=== PATIENT | male | born 1960 | race Caucasian/White ===

== ENCOUNTER 2016-06-21 03:43 | Emergency (ER) | payer MEDICARE, OTHER ==
[~2016-06-21] VITALS: Ht 177.8 cm; Wt 85.0 kg
[~2016-06-21 03:43] MED LIST: ABAC1TAB12 PO; ASPI-664 PO; CARV25TA79 PO; CRES10 PO; HYDR-3498 PO; HYDR-902 PO; LISI10TA2 PO; LORA1TAB PO; LORA2ORA2 PO; TAMS0.4C2 PO; ZOLP10TA PO; ZOLP10TA5 PO
[2016-06-21 03:46] VITALS: Ht 177.8 cm; Wt 85.0 kg
[2016-06-21] MEDS ORDERED: morphine 4 MG/ML VIAL IV STA (05:05)
[2016-06-21] MEDS ORDERED: SOD CHLORIDE 0.9% 1,000 ML IV STA (05:05)
[2016-06-21 06:14] LABS: ADD UMIC YES; URINE BILIRUBIN (Dip) NEGATIVE (NEGATIVE); URINE BLOOD (Dip) 2+ (NEGATIVE); URINE COLOR YELLOW (YELLOW); URINE GLUCOSE (Dip) NEGATIVE (NEGATIVE); URINE KETONES (Dip) 15 (NEGATIVE); URINE LEUKOCYTE ESTERASE (Dip) NEGATIVE (NEGATIVE); URINE NITRITE (Dip) NEGATIVE (NEGATIVE); URINE TOTAL PROTEIN (Dip) 2+ (NEGATIVE); URINE UROBILINOGEN (Dip) 0.2 E.U./dL (0.1-1.0)
[2016-06-21 06:28] LABS: BASOPHILS % 0.1 % (0.0-2.0); EOSINOPHILS % 0.1 % (0.0-7.0); HEMATOCRIT 43.5 % (42.0-52.0); HEMOGLOBIN 15.3 g/dl (14.0-18.0); LYMPHOCYTES % 13.7 % (15.0-51.0); MEAN CORPUSCULAR HGB CONC 35.1 g/dl (32.0-37.0); MEAN CORPUSCULAR VOLUME 94.1 fl (82.0-101.0); MEAN PLATELET VOLUME 7.9 fl (7.4-10.4); MONOCYTE # 1.7 10^3/ul (0.3-0.9); MONOCYTES % 11.3 % (0.0-11.0); NEUTROPHILS % 74.8 % (39.0-77.0); PLATELET COUNT 138 10^3/UL (140-440); RED BLOOD COUNT 4.62 10^6/ul (4.70-6.10); RED CELL DISTRIBUTION WIDTH 12.9 % (11.5-14.5); UNCORRECTED WBC 14.7 10^3/ul (4.8-10.8); WHITE BLOOD COUNT 14.7 10^3/ul (4.8-10.8)
--- NOTE | 2016-06-21 06:40 | RADRPT ---
PROCEDURE: CT Abdomen and pelvis without contrast. CLINICAL INDICATION: Abdominal pain. TECHNIQUE: CT scan of the abdomen and pelvis was performed on the [facility] [employer] 6 4 slice VCT scanner. Contiguous axial images using 2.5 mm slice thickness were obtained from the pascale ng bases to the ischial tuberosities without intravenous contrast. Coronal and sagittal reformatted images were also obtained. Images were reviewed on the PACS workstation. One or more of the following dose reduction techniques were used: - Automated exposure control. - Adjustment of the mA and/or kV according to patient size. - Use of iterative reconstruction technique. Exam CTD/vol = 18.98 mGy. Total exam DLP = 1219.14 mGy-cm. COMPARISON: 04/22/2013. FINDINGS: Evaluation of the lung bases demonstrates no pleural or parenchymal disease. Abdomen: The liver is normal in size and diffusely low in attenuation consistent with fatty infiltr ation. There is no focal mass or dilatation of the biliary tree. The patient is status post cholec ystectomy. The spleen, pancreas and bilateral adrenal glands are within normal limits. Bilateral k idneys are normal in size with a small cyst within the mid to upper pole of the left kidney. There is no radiopaque renal or ureteral calculus identified. There is no hydronephrosis or hydroureter. There is no retroperitoneal adenopathy. The abdominal aorta is of normal caliber with scattered at herosclerotic calcifications. There is a small periumbilical hernia containing fat. There is mild thickening of the colon with mi ld adjacent stranding. There is no bowel obstruction or free air. The appendix is not visualized. There is no diverticulosis or diverticulitis. There is no ascites. Pelvis: The bladder is unremarkable. The prostate and seminal vesicles are within normal limits. There is no significant pelvic adenopathy or free fluid. Evaluation of the osseous structures demonstrates no suspicious lytic or blastic lesion. IMPRESSION: Mild thickening of the colon represents nonspecific infectious/inflammatory colitis. Fatty infiltration of the liver. Status post cholecystectomy. Small periumbilical hernia containing fat. Vascular calcifications reflective of atherosclerosis. .Jagjit Guevara MD, Date Time Electronically viewed and signed by .Jagjit Guevara MD, on 06/21/2016 06:40 .T/
[2016-06-21 06:42] LABS: CONDITION 1
[2016-06-21 07:47] LABS: POTASSIUM 4.6 mmol/L (3.5-5.1)
[2016-06-21 07:49] LABS: ALBUMIN/GLOBULIN RATIO 1.17; BILIRUBIN,INDIRECT 0.2 mg/dl (0-1.1); BILIRUBIN,TOTAL 0.2 mg/dl (0.2-1.3); CREATININE 1.07 mg/dl (0.61-1.24); TOTAL PROTEIN 7.4 g/dl (6.1-8.1)
[2016-06-21 07:50] LABS: CALCIUM 9.2 mg/dl (8.4-10.2)
[2016-06-21] MEDS ORDERED: ACETAMINOPHEN 500 MG TAB PO STA (08:24)
[2016-06-21] MEDS ORDERED: ONDA4TAB14 PO (08:25)
[2016-06-21] MEDS ORDERED: DICY10CA60 PO (08:25)
[2016-06-21] MEDS ORDERED: CIPR500T4 PO (08:25)
[2016-06-21] MEDS ORDERED: HYDR-902 PO (08:25)
--- NOTE | 2016-06-21 08:32 | ERD ---
ER Documentation Chief Complaint Date/Time DATE: 06/21/16 TIME: 08:28 Chief Complaint bib ambulance, mid abd pain x 2 days, diarrhea, hx hiv+ HPI Pleasant 55-year-old male history of hypertension diabetes, blindness, HIV, CD4 of 800 who presents to the emergency room with 2 days of symptoms. Patient describes mild diffuse cramping abdominal discomfort with associated loose watery stools. He denies any fevers or chills, no nausea or vomiting. He denies chest pain or shortness of breath. No recent sick contacts or antibiotics. ROS All systems reviewed and are negative except as per history of present illness. Medications Home Meds Active Scripts Ondansetron (Ondansetron Odt) 4 Mg Tab.rapdis, 4 MG PO Q6H Y for NAUSEA AND/OR VOMITING, #10 TAB Prov:JOB ROJAS MD 06/21/16 Ciprofloxacin Hcl* (Ciprofloxacin Hcl*) 500 Mg Tablet, 500 MG PO BID for 7 Days , TAB Prov:JOB ROJAS MD 06/21/16 Hydrocodone/Acetaminophen ([place] 10-325 Tablet) 1 Each Tablet, 1 TAB PO Q6H Y for PAIN, #7 TAB Prov:JOB ROJAS MD 06/21/16 Dicyclomine Hcl* (Bentyl*) 10 Mg Capsule, 10 MG PO QID Y for abdominal cramping , #30 CAP Prov:JOB ROJAS MD 06/21/16 Hydrocodone/Acetaminophen ([place] 10-325 Tablet) 1 Each Tablet, 1 TAB PO Q6H Y for PAIN, #20 TAB Prov:GAMAILEL BAUM PA-C 04/12/16 Zolpidem Tartrate* (Ambien*) 10 Mg Tablet, 10 MG PO QHS Y for INSOMNIA, #3 TAB Prov:DANNI LOJA DO 01/23/16 Lorazepam* (Lorazepam*) 1 Mg Tablet, 1 MG PO Q8, #6 TAB Prov:DANNI LOJA DO 01/23/16 Reported Medications Abacavir/Dolutegravir/Lamivudi (Triumeq Tablet) 1 Each Tablet, 1 EACH PO DAILY, TAB 12/18/15 Zolpidem Tartrate* (Zolpidem Tartrate*) 10 Mg Tablet, 10 MG PO QHS Y for INSOMNIA, #30 TAB 12/15/15 Lorazepam* (Ativan* Intensol) 2 Mg/1 Ml Oral.conc, 1 MG PO TID, ML 12/15/15 Aspirin* (Aspirin* EC) 81 Mg Tablet.dr, 81 MG PO DAILY, TAB 12/15/15 Lisinopril* (Lisinopril*) 10 Mg Tablet, 10 MG PO DAILY, #30 TAB 12/15/15 Hydrocodone Bit-Acetaminophen* ([place]*) 5-325 Mg Tab, 1 TAB PO Q4H Y for PAIN, TAB 12/15/15 Carvedilol* (Carvedilol*) 25 Mg Tablet, 25 MG PO BID, TAB 06/15/14 Tamsulosin Hcl* (Tamsulosin Hcl*) 0.4 Mg Cap.er.24h, 0.4 MG PO DAILY 01/02/13 Rosuvastatin Calcium* (Crestor*) 10 Mg Tablet, 10 MG PO DAILY 11/08/12 Allergies Allergies: Coded Allergies: ketorolac (Verified Allergy, Unknown, 12/18/15) ketorolac tromethamine (Verified Allergy, Unknown, 12/18/15) PMhx/Soc History of Surgery: No Anesthesia Reaction: No Hx Neurological Disorder: Yes (BLIND) Hx Respiratory Disorders: No Hx Cardiac Disorders: Yes (NE X 3 WITH STENTS, HTN, HIGH CHOLESTEROL) Hx Psychiatric Problems: No Hx Miscellaneous Medical Probl: Yes (HIV) Hx Alcohol Use: No Hx Substance Use: No Hx Tobacco Use: No Smoking Status: Never smoker Physical Exam Vitals Vital Signs Date Time Temp Pulse Resp B/P Pulse Ox O2 Delivery O2 Flow Rate FiO2 06/21/16 07:00 100.2 98 18 139/99 95 Room Air 06/21/16 03:46 99.8 110 20 140/77 98 Physical Exam General: Well developed, well nourished, no acute distress Head: Normocephalic, atraumatic. Eyes: Pupils equally reactive, EOM intact ENT: Moist mucous membranes Neck: Supple, no lymphadenopathy Respiratory: Lungs clear bilaterally, no distress Cardiovascular: RRR, no murmurs, rubs, or gallops Abdominal: Soft, mild diffuse tenderness without rebound or guarding : Deferred MSK: No edema, no unilateral swelling, 5/5 strength Neurologic: Alert and oriented, moving all extremities, normal speech, no focal weakness, no cerebellar signs Skin: No rash Psych: Normal mood Result Diagram: 06/21/16 0614 06/21/16 0614 Results 24 hrs Laboratory Tests Test 06/21/16 05:50 06/21/16 06:14 Urine Bilirubin NEGATIVE Urine Clarity CLEAR Urine Color YELLOW Urine Glucose NEGATIVE% Urine Hemoglobin 2+ Urine Ketones 15 Urine Leukocyte Esterase NEGATIVE Urine Microscopic RBC 2-5/HPF Urine Microscopic WBC NONE SEEN/HPF Urine Nitrite NEGATIVE Urine Specific [place] 1.020 Urine Total Protein 2+ Urine Urobilinogen 0.2 E.U./dL Urine pH 6.5 Alanine Aminotransferase (ALT/SGPT) 42IU/L Albumin 4.0g/dl Albumin/Globulin Ratio 1.17 Alkaline Phosphatase 72IU/L Anion Gap 20 Aspartate Amino Transf (AST/SGOT) 35IU/L Basophils # 0.010^3/ul Basophils % 0.1% Blood Urea Nitrogen 10mg/dl Calcium Level 9.2mg/dl Carbon Dioxide Level 19mmol/L Chloride Level 97mmol/L Creatinine 1.07mg/dl Direct Bilirubin 0.00mg/dl Eosinophils # 0.010^3/ul Eosinophils % 0.1% Globulin 3.40g/dl Glucose Level 117mg/dl Hematocrit 43.5% Hemoglobin 15.3g/dl Indirect Bilirubin 0.2mg/dl Lactic Acid Level 1.1mmol/L Lipase 19U/L Lymphocytes # 2.010^3/ul Lymphocytes % 13.7% Mean Corpuscular Hemoglobin 33.0pg Mean Corpuscular Hemoglobin Concent 35.1g/dl Mean Corpuscular Volume 94.1fl Mean Platelet Volume 7.9fl Monocytes # 1.710^3/ul Monocytes % 11.3% Neutrophils # 11.010^3/ul Neutrophils % 74.8% Nucleated Red Blood Cells # 0.010^3/ul Nucleated Red Blood Cells % 0.0/100WBC Platelet Count 22473^3/UL Potassium Level 4.6mmol/L Red Blood Count 4.6210^6/ul Red Cell Distribution Width 12.9% Sodium Level 131mmol/L Total Bilirubin 0.2mg/dl Total Protein 7.4g/dl White Blood Count 14.710^3/ul Current Medications Medications (Trade) Dose Ordered Sig/Tiffanie Route PRN Reason Start Time Stop Time Status Last Admin Dose Admin Sodium Chloride (NS) 1,000 ml @ 1,000 mls/hr Q1H STAT IV 06/21/16 05:05 06/21/16 06:04 DC 06/21/16 06:24 Morphine Sulfate (morphine) 4 mg ONCE STAT IV 06/21/16 05:05 06/21/16 05:06 DC 06/21/16 06:24 Acetaminophen (Tylenol Tab) 1,000 mg ONCE STAT PO 06/21/16 08:24 06/21/16 08:25 DC 06/21/16 08:27 Procedures/MDM EKG, MONITORS, & DIAGNOSTIC IMAGING: CT abdomen and pelvis IMPRESSION: Mild thickening of the colon represents nonspecific infectious/inflammatory colitis. Fatty infiltration of the liver. Status post cholecystectomy. Small periumbilical hernia containing fat. Vascular calcifications reflective of atherosclerosis. LAB INTERPRETATION: Leukocytosis, slight hyponatremia MEDICAL DECISION MAKING: The patient's presentation is most consistent with viral process. The patient does have HIV but CD4 count is 800. This does not appear to be consistent with opportunistic diarrheal infection. Patient has good and appropriate follow-up. Given the patient's age comorbidities CT imaging of the abdomen and pelvis would be appropriate. ER COURSE: Laboratory testing shows slight leukocytosis. CT confirms possible colitis. While this is possibly related to viral process given the patient's past medical history and slight leukocytosis as well as low-grade fever a short course of ciprofloxacin seems reasonable. No signs or symptoms concerning for hemorrhagic E. coli. The patient has no evidence of renal failure. This is not consistent with HUS. Patient management would be reasonable as the patient is well-appearing and can tolerate oral intake. I advise close primary care follow-up and we discussed return precautions including fevers or worsening symptoms. I kept the patient and/or family informed of laboratory and diagnostic imaging results throughout the emergency room course. DISPOSITION PLAN: We discussed follow up with the patient's primary care doctor within 24 to 48 hours as needed. We also discussed return to the emergency room for worsening symptoms or worsening condition. Discharge Medications: [place], Zofran, Cipro, Bentyl We discussed the use of narcotics including avoidance of operating heavy machinery and driving as well as its addictive properties. Departure Diagnosis: Primary Impression: Abdominal pain Abdominal location: generalized Qualified Code: R10.84 - Generalized abdominal pain Additional Impressions: Diarrhea Diarrhea type: unspecified type Qualified Code: R19.7 - Diarrhea, unspecified type History of HIV infection Leukocytosis Leukocytosis type: unspecified Qualified Code: D72.829 - Leukocytosis, unspecified type Condition: Stable Patient Instructions: Abdominal Pain, Diarrhea, Viral (Child) (Adult) Referrals: [facility] YOU HAVE RECEIVED A MEDICAL SCREENING EXAM AND THE RESULTS INDICATE THAT YOU DO NOT HAVE A CONDITION THAT REQUIRES URGENT TREATMENT IN THE EMERGENCY DEPARTMENT. FURTHER EVALUATION AND TREATMENT OF YOUR CONDITION CAN WAIT UNTIL YOU ARE SEEN IN YOUR DOCTORS OFFICE WITHIN THE NEXT 1-2 DAYS. IT IS YOUR RESPONSIBILITY TO MAKE AN APPOINTMENT FOR FOLOW-UP CARE. IF YOU HAVE A PRIMARY DOCTOR --you should call your primary doctor and schedule an appointment IF YOU DO NOT HAVE A PRIMARY DOCTOR YOU CAN CALL OUR PHYSICIAN REFERRAL HOTLINE AT IF YOU CAN NOT AFFORD TO SEE A PHYSICIAN YOU CAN CHOSE FROM THE FOLLOWING [facility] [address] [facility]. [facility] [address] [facility]. [facility] [address] [facility] [facility] [address] [facility]. [facility] [address] [facility]. [facility]. [address] [facility]. [facility] YOU HAVE RECEIVED A MEDICAL SCREENING EXAM AND THE RESULTS INDICATE THAT YOU DO NOT HAVE A CONDITION THAT REQUIRES URGENT TREATMENT IN THE EMERGENCY DEPARTMENT. FURTHER EVALUATION AND TREATMENT OF YOUR CONDITION CAN WAIT UNTIL YOU ARE SEEN IN YOUR DOCTORS OFFICE WITHIN THE NEXT 1-2 DAYS. IT IS YOUR RESPONSIBILITY TO MAKE AN APPOINTMENT FOR FOLOW-UP CARE. IF YOU HAVE A PRIMARY DOCTOR --you should call your primary doctor and schedule and appointment IF YOU DO NOT HAVE A PRIMARY DOCTOR YOU CAN CALL OUR PHYSICIAN REFERRAL HOTLINE AT . IF YOU CAN NOT AFFORD TO SEE A PHYSICIAN YOU CAN CHOSE FROM THE FOLLOWING [facility] INSTITUTIONS: [facility] [address] [place] [address] [facility] [address] [place] [address] [facility] [address] [place] [address] [facility] () Usted se khan hecho un examen mdico de control que le indica que no est en jeff condicin que requiera tratamiento urgente en el Departamento de Emergencia. Un estudio ms profundo y el tratamiento de clark condicin pueden esperar sin ningn riesgo hasta que usted sea atendida/o en el consultorio de clark mdico o jeff cl alonzo. Es responsabilidad suya arreglar jeff francine para el seguimiento del samina. MANEJO DE CONDICIONES NO URGENTES EN EL FUTURO 1) Si usted tiene un mdico de atencin primaria: Usted debera llamar a clark mdico de atencin primaria antes de venir al departamento de emergencia. Despus de las horas de consultorio, clark doctor o clark asociado/a est disponible por telfono. El mdico o enfermero de michele en el servicio telefnico puede asesorarle por elina medio para atender el problema, o samina contrario se puede programar jeff francine. 2) Si usted no tiene un mdico de atencin primaria: Llame al mdico o clnica de referencia que aparece abajo emma las horas de consultorio para hacer jeff francine para que le vean. CLINICAS: [facility] [phone] [facility] [phone] [facility] [phone] [address] [facility] [phone] [address] [facility] [phone] [facility] [phone] [address] [facility]. [facility] () Anna se khan hecho un examen mdico de control que le indica que no est en jeff condicin que requiera tratamiento urgente en el Departamento de Emergencia. Un estudio ms profundo y el tratamiento de clark condicin pueden esperar sin ningn riesgo hasta que usted sea atendida/o en el consultorio de clark mdico o jeff cl alonzo. Es responsabilidad suya arreglar jeff francine para el seguimiento del samina. MANEJO DE CONDICIONES NO URGENTES EN EL FUTURO 1) Si usted tiene un mdico de atencin primaria: Usted debera llamar a clark mdico de atencin primaria antes de venir al departamento de emergencia. Despus de las horas de consultorio, clark doctor o clark asociado/a est disponible por telfono. El mdico o enfermero de michele en el servicio telefnico puede asesorarle por elina medio para atender el problema, o samina contrario se puede programar jeff francine. 2) Si usted no tiene un mdico de atencin primaria: Llame al mdico o condado institucions de referencia que aparece abajo emma las horas de consultorio para hacer jeff francine para que le vean. SI USTED NO PUEDE PAGAR PARA LANA UN MEDICO puede ir a: [facility] [address] [place] [address] [facility] [address] [place] [address] [facility] [address] [place] [address] [facility] [facility] [address] [place] [address] JOB ROJAS MD Jun 21, 2016 08:32
[2016-06-21] MEDS ORDERED: HYDROCODONE/APAP (10/325) TAB PO ONE (09:30)
[2016-06-21 09:40] VITALS: BP 145/89; PULSE 90; RESP 18; TEMP 99.8
== END 2016-06-21 09:40 | disposition home or self-care (01) ==
LOC: E/R 03:43
DX: R10.84 Generalized abdominal pain (principal); R19.7 Diarrhea, unspecified; D72.829 Elevated white blood cell count, unspecified; I10 Essential (primary) hypertension; E11.9 Type 2 diabetes mellitus without complications; Z21 Asymptomatic human immunodeficiency virus [HIV] infection status; Z95.5 Presence of coronary angioplasty implant and graft; Z79.82 Long term (current) use of aspirin
CPT/HCPCS: 74176; 80053; 81001; 83605; 83690; 85025; 96361; 96374; 99285; J2270; J7030; 81003

== ENCOUNTER 2017-03-02 16:33 | Inpatient (IN) | payer MEDICARE, OTHER ==
[~2017-03-02] VITALS: Ht 165.1 cm; Wt 94.0 kg
[~2017-03-02 16:33] MED LIST changes: +CIPR500T4 PO; +DICY10CA60 PO; +ONDA4TAB14 PO
[2017-03-02] MEDS ORDERED: morphine 4 MG/ML VIAL IV STA ×2 (17:40→22:59)
[2017-03-02] MEDS ORDERED: DICYCLOMINE 10 MG CAP PO ONE (18:00)
[2017-03-02] MEDS ORDERED: SOD CHLORIDE 0.9% 1,000 ML IV ONE (18:00)
--- NOTE | 2017-03-02 18:28 | RADRPT ---
PROCEDURE: Chest x-ray CLINICAL INDICATION: Shortness of breath TECHNIQUE: Chest single view COMPARISON: 04/12/2016 FINDINGS: The heart is normal in size. The pulmonary vessels are normal in caliber. There is minimal linear l eft base atelectasis/scarring. Lungs otherwise clear.. The costophrenic angles are sharp. The visu alized bony thorax is unremarkable. IMPRESSION: No acute cardiopulmonary disease. RPTAT: HH .Vasu Mcdonnell MD, Date Time Electronically viewed and signed by .Vasu Mcdonnell MD, on 03/02/2017 18:28 .W/
[2017-03-02 18:36] LABS: ADD UMIC YES; UR ASCORBIC ACID NEGATIVE (NEGATIVE); UR BACTERIA FEW /HPF (NONE SEEN); UR BILIRUBIN (Dip) NEGATIVE (NEGATIVE); UR BLOOD (Dip) 1+ mg/dL (NEGATIVE); UR CLARITY CLEAR (CLEAR); UR COLOR STRAW (YELLOW); UR GLUCOSE (Dip) 1+ mg/dL (NEGATIVE); UR KETONES (Dip) NEGATIVE (NEGATIVE); UR LEUKOCYTE ESTERASE (Dip) NEGATIVE Leu/ul (NEGATIVE); UR NITRITE (Dip) NEGATIVE (NEGATIVE); UR RBC 1 /HPF (0-5); UR SPECIFIC GRAVITY (Dip) 1.011 (1.003-1.030); UR TOTAL PROTEIN (Dip) 1+ mg/dl (NEGATIVE); UR UROBILINOGEN (Dip) NEGATIVE (NEGATIVE)
[2017-03-02] MEDS ORDERED: ONDANSETRON 4 MG INJ ONE (18:54)
[2017-03-02 19:21] LABS: ALBUMIN 4.1 g/dl (3.3-4.9); ALBUMIN/GLOBULIN RATIO 1.1; CALCIUM 9.4 mg/dl (8.4-10.2); CREATININE 1.2 mg/dl (0.61-1.24); POTASSIUM 4.5 mmol/L (3.5-5.1); TOTAL PROTEIN 7.8 g/dl (6.1-8.1)
[2017-03-02] MEDS ORDERED: ONDANSETRON 4 MG INJ IV STA (19:23)
[2017-03-02 19:39] LABS: BASOPHILS % 0.2 % (0.0-2.0); EOSINOPHILS % 0.4 % (0.0-7.0); HEMATOCRIT 41.2 % (42.0-52.0); HEMOGLOBIN 14.8 g/dl (14.0-18.0); LYMPHOCYTES # 2.5 10^3/ul (0.8-2.9); LYMPHOCYTES % 24.8 % (15.0-51.0); MEAN CORPUSCULAR HEMOGLOBIN 31.5 pg (29.0-33.0); MEAN CORPUSCULAR HGB CONC 35.9 g/dl (32.0-37.0); MEAN CORPUSCULAR VOLUME 87.7 fl (82.0-101.0); MEAN PLATELET VOLUME 9.7 fl (7.4-10.4); MONOCYTE # 0.8 10^3/ul (0.3-0.9); NEUTROPHIL # 6.7 10^3/ul (1.6-7.5); NEUTROPHILS % 66.2 % (39.0-77.0); PLATELET COUNT 196 10^3/UL (140-415); RED CELL DISTRIBUTION WIDTH 11.8 % (11.5-14.5); WHITE BLOOD COUNT 10.1 10^3/ul (4.8-10.8)
[2017-03-02] MEDS ORDERED: DEXTROSE 5%-0.9% NACL 1,000 ML IV SCH (21:30)
--- NOTE | 2017-03-02 22:10 | RADRPT ---
PROCEDURE: CT Brain without contrast. CLINICAL INDICATION: Headache TECHNIQUE: A multiplanar CT of the brain was performed on a CT scanner utilizing axial imaging fro m the skull base through the vertex without IV contrast. The CTDIvol is 43.38 mGy and the DLP is 72 0.23 mGycm. One or more of the following dose reduction techniques were utilized: Automated exposu re control, adjustment of the mA and/or kV according to patient size, use of iterative reconstructio n technique. COMPARISON: CT brain 04/12/2016 FINDINGS: No evidence of intracranial hemorrhage or abnormal extra-axial fluid collection. The brain parenchyma is normal attenuation morphology with preservation of keene white differentiatio n and age appropriate size of the ventricles and subarachnoid spaces. Bilateral ocular silicone/pros thesis The basal cisterns, posterior fossa contents, brainstem, craniocervical junction, orbits, pituitary axis, paranasal sinuses, mastoid air cells, and calvarium are unremarkable. IMPRESSION: 1. No intracranial hemorrhage or acute intracranial abnormality. No interval change. RPTAT:AAJJ Physician Kailyn Date Time Electronically viewed and signed by Physician Kailyn on 03/02/2017 22:10 DERRICK/
[2017-03-02] MEDS ORDERED: ROSU20TA PO (22:27)
[2017-03-02] MEDS ORDERED: LISI20TA11 PO (22:27)
[2017-03-02] MEDS ORDERED: BENZ200C43 PO (22:28)
[2017-03-02] MEDS ORDERED: PRD1OP5 BOTH EYES (22:29)
[2017-03-02] MEDS ORDERED: ATR1OO35 BOTH EYES (22:30)
[2017-03-02] MEDS ORDERED: ONDANSETRON 4 MG INJ IV PRN ×2 (22:30→23:30)
[2017-03-02] MEDS ORDERED: ACETAMINOPHEN 325 MG TAB PO PRN ×2 (22:30→23:30)
[2017-03-02 22:41] VITALS: TEMP 98.2
[2017-03-02] MEDS ORDERED: DOCUSATE SODIUM 100 MG CAP PO PRN (23:30)
[2017-03-02] MEDS ORDERED: NACL 0.9% 3 ML SYG IV SCH (23:30)
[2017-03-02] MEDS ORDERED: BISACODYL (EC) 5 MG TAB PO PRN (23:30)
[2017-03-02 23:56] VITALS: BP 118/77; RESP 19
[2017-03-03] VITALS (11 sets, daily range): BP systolic 84–136; BP diastolic 46–93; PULSE 64–76; RESP 17–20; Ht 165.1 cm; Wt 94.0 kg
[2017-03-03] MEDS ORDERED: CYCL-319 PO (00:53)
[2017-03-03] MEDS ORDERED: METO10TA96 PO (00:53)
--- NOTE | 2017-03-03 00:53 | ERA ---
ER Documentation Chief Complaint Date/Time DATE: 03/03/17 TIME: 00:46 Chief Complaint BODY ACHES, COUGH HPI This patient is a 56-year-old male with past medical history of HIV presenting to the emergency department with complaints of multiple episodes of diarrhea over the past 3 days. He states he had over 20 episodes of watery stool today. He also reports mild diffuse abdominal pain. Symptoms are constant. Symptoms are worsening. He took Tylenol at home with no relief of symptoms. He denies fevers, chills, nausea, vomiting, urinary symptoms, or other symptoms at this time other than headache. He is currently on antiretroviral therapy, however he does not recall his last viral load and does not recall exactly when he was last tested. ROS All systems reviewed and are negative except as per history of present illness. Medications Home Meds Active Scripts Lorazepam* (Lorazepam*) 1 Mg Tablet, 1 MG PO Q8, #6 TAB Prov:LINDSAYRYLAN OVIEDOCHETNA DO 01/23/16 Reported Medications Atropine Sulfate* (Atropine Sulfate*) 3.5 Gm Oint, 1 APPLIC BOTH EYES QID, #1 TUB 03/02/17 Prednisolone Acetate* (Pred Forte*) 5 Ml Susp, 1 DROP BOTH EYES QID, EA 03/02/17 Benzonatate* (Benzonatate*) 200 Mg Capsule, 200 MG PO TID Y for COUGH, CAP 03/02/17 Rosuvastatin Calcium* (Crestor*) 20 Mg Tablet, 20 MG PO QHS, #30 TAB 03/02/17 Lisinopril* (Lisinopril*) 20 Mg Tablet, 20 MG PO BID, #30 TAB 03/02/17 Abacavir/Dolutegravir/Lamivudi (Triumeq Tablet) 1 Each Tablet, 1 EACH PO DAILY, TAB 12/18/15 Zolpidem Tartrate* (Zolpidem Tartrate*) 10 Mg Tablet, 10 MG PO QHS Y for INSOMNIA, #30 TAB 12/15/15 Aspirin* (Aspirin* EC) 81 Mg Tablet.dr, 81 MG PO DAILY, TAB 12/15/15 Carvedilol* (Carvedilol*) 25 Mg Tablet, 25 MG PO BID, TAB 06/15/14 Discontinued Reported Medications Lorazepam* (Ativan* Intensol) 2 Mg/1 Ml Oral.conc, 1 MG PO TID, ML 12/15/15 Lisinopril* (Lisinopril*) 10 Mg Tablet, 10 MG PO DAILY, #30 TAB 12/15/15 Hydrocodone Bit-Acetaminophen* ([place]*) 5-325 Mg Tab, 1 TAB PO Q4H Y for PAIN, TAB 12/15/15 Tamsulosin Hcl* (Tamsulosin Hcl*) 0.4 Mg Cap.er.24h, 0.4 MG PO DAILY 01/02/13 Rosuvastatin Calcium* (Crestor*) 10 Mg Tablet, 10 MG PO DAILY 11/08/12 Discontinued Scripts Ondansetron (Ondansetron Odt) 4 Mg Tab.rapdis, 4 MG PO Q6H Y for NAUSEA AND/OR VOMITING, #10 TAB Prov:JOB ROJAS MD 06/21/16 Ciprofloxacin Hcl* (Ciprofloxacin Hcl*) 500 Mg Tablet, 500 MG PO BID for 7 Days , TAB Prov:JOB ROJAS MD 06/21/16 Hydrocodone/Acetaminophen ([place] 10-325 Tablet) 1 Each Tablet, 1 TAB PO Q6H Y for PAIN, #7 TAB Prov:JOB ROJAS MD 06/21/16 Dicyclomine Hcl* (Bentyl*) 10 Mg Capsule, 10 MG PO QID Y for abdominal cramping , #30 CAP Prov:JOB ROJAS MD 06/21/16 Hydrocodone/Acetaminophen ([place] 10-325 Tablet) 1 Each Tablet, 1 TAB PO Q6H Y for PAIN, #20 TAB Prov:GAMALIEL BAUM PA-C 04/12/16 Zolpidem Tartrate* (Ambien*) 10 Mg Tablet, 10 MG PO QHS Y for INSOMNIA, #3 TAB Prov:DANNI LOJA DO 01/23/16 Allergies Allergies: Coded Allergies: ketorolac (Verified Allergy, Unknown, 03/02/17) ketorolac tromethamine (Verified Allergy, Unknown, 03/02/17) PMhx/Soc Medical and Surgical Hx: pt denies Surgical Hx History of Surgery: Yes Anesthesia Reaction: No Hx Neurological Disorder: No Hx Respiratory Disorders: No Hx Cardiac Disorders: Yes (MIx3 w/ 2 stents) Hx Psychiatric Problems: No Hx Miscellaneous Medical Probl: Yes (HIV+) Hx Alcohol Use: No Hx Substance Use: No Hx Tobacco Use: No Smoking Status: Never smoker FmHx Family History: No diabetes Physical Exam Vitals Vital Signs Date Time Temp Pulse Resp B/P Pulse Ox O2 Delivery O2 Flow Rate FiO2 03/02/17 16:49 98.3 94 18 132/88 99 Physical Exam Const: Well-developed, well-nourished male but nontoxic appearing. Head: Atraumatic Eyes: no scleral icterus. hazy appearing corneas bilaterally, chronic ENT: Dry mucous membranes. Neck: Full range of motion..~ No meningismus. Resp: Clear to auscultation bilaterally Cardio: Regular rate and rhythm, no murmurs Abd: Soft, mild diffuse tenderness to palpation but no focal tenderness, no rebound tenderness or guarding noted, no McBurney's point tenderness. non distended. hyperactive bowel sounds Skin: No petechiae or rashes Back: No midline or flank tenderness Ext: No cyanosis, or edema Neur: Awake and alert and oriented 3, cranial nerves intact, motor grossly intact. wheelchair bound. Psych: Normal Mood and Affect Result Diagram: 03/02/17183703/02/171837 Results 24 hrs Laboratory Tests Test 03/02/17 18:00 03/02/17 18:38 Urine Color STRAW Urine Clarity CLEAR Urine pH 5.0 Urine Specific Roe 1.011 Urine Ketones NEGATIVEmg/dL Urine Nitrite NEGATIVEmg/dL Urine Bilirubin NEGATIVEmg/dL Urine Urobilinogen NEGATIVEmg/dL Urine Leukocyte Esterase NEGATIVELeu/ul Urine Microscopic RBC 1/HPF Urine Microscopic WBC 4/HPF Urine Bacteria FEW/HPF Urine Hemoglobin 1+mg/dL Urine Glucose 1+mg/dL Urine Total Protein 1+mg/dl White Blood Count 10.110^3/ul Red Blood Count 4.7010^6/ul Hemoglobin 14.8g/dl Hematocrit 41.2% Mean Corpuscular Volume 87.7fl Mean Corpuscular Hemoglobin 31.5pg Mean Corpuscular Hemoglobin Concent 35.9g/dl Red Cell Distribution Width 11.8% Platelet Count 05844^3/UL Mean Platelet Volume 9.7fl Neutrophils % 66.2% Lymphocytes % 24.8% Monocytes % 8.0% Eosinophils % 0.4% Basophils % 0.2% Nucleated Red Blood Cells % 0.0/100WBC Neutrophils # 6.710^3/ul Lymphocytes # 2.510^3/ul Monocytes # 0.810^3/ul Eosinophils # 0.010^3/ul Basophils # 0.010^3/ul Nucleated Red Blood Cells # 0.010^3/ul Sodium Level 123mmol/L Potassium Level 4.5mmol/L Chloride Level 95mmol/L Carbon Dioxide Level 16mmol/L Anion Gap 17 Blood Urea Nitrogen 8mg/dl Creatinine 1.20mg/dl Glucose Level 109mg/dl Calcium Level 9.4mg/dl Total Bilirubin 0.0mg/dl Direct Bilirubin 0.00mg/dl Indirect Bilirubin 0.0mg/dl Aspartate Amino Transf (AST/SGOT) 23IU/L Alanine Aminotransferase (ALT/SGPT) 25IU/L Alkaline Phosphatase 64IU/L Total Protein 7.8g/dl Albumin 4.1g/dl Globulin 3.70g/dl Albumin/Globulin Ratio 1.10 Lipase 124U/L Current Medications Medications (Trade) Dose Ordered Sig/Tiffanie Route PRN Reason Start Time Stop Time Status Last Admin Dose Admin Sodium Chloride (NS) 1,000 ml @ 1,000 mls/hr Q1H ONCE IV 03/02/17 18:00 03/02/17 18:59 DC 03/02/17 19:08 Morphine Sulfate (morphine) 4 mg ONCE STAT IV 03/02/17 17:40 03/02/17 17:45 DC 03/02/17 19:08 Dicyclomine HCl (Bentyl) 20 mg ONCE ONCE PO 03/02/17 18:00 03/02/17 18:01 DC 03/02/17 19:08 Ondansetron HCl (Zofran Inj) 4 mg STK-MED ONCE .ROUTE 03/02/17 18:54 03/02/17 18:55 DC Ondansetron HCl 4 mg 4 mg ONCE STAT IV 03/02/17 19:23 03/02/17 19:24 DC 03/02/17 19:26 Dextrose/Sodium Chloride (D5-NS) 1,000 ml @ 125 mls/hr Q8H IV 03/02/17 21:30 03/03/17 00:38 DC 03/02/17 23:24 Procedures/MDM Labs CBC: no anemia or evidence of infection CMP: Significant hyponatremia and hypochloremia, acidosis. No evidence of renal failure, hypoglycemia, liver failure, or biliary obstruction Lipase: no evidence of pancreatitis UA: no evidence of infection Chest x-ray: no Acute abnormalities CT head: no acute abnormalities MDM Patient is presenting with acute diarrhea without any evidence of sepsis on my exam. Patient's labs were notable for hyponatremia and exam was notable for dehydration. I do not think the patient is stable for discharge at this time and will require treatment for this. 1 L of IV fluids were given here and he was started on maintenance IV fluids. CT head was done to evaluate for any evidence of cerebral edema given his headache in the setting of hyponatremia. CT head was normal. I do not suspect surgical abdomen. I do not think he needs any abdominal imaging at this time. Stool studies were ordered and are pending. I will defer any further workup of his diarrhea to the inpatient team. Accepting Care Team: Current data and ongoing care discussed. Time: Time of admission Primary Provider: Alexandru Consulting: none Outstanding Data: Stool studies Departure Diagnosis: Primary Impression: Diarrhea Qualified Code: R19.7 - Diarrhea, unspecified type Additional Impression: Hyponatremia Condition: Serious NAVNEET SANTIAGO MD Mar 03, 2017 00:53
[2017-03-03 01:09] LABS: CALCIUM 9.3 mg/dl (8.4-10.2); CREATININE 1.03 mg/dl (0.61-1.24); POTASSIUM 4.6 mmol/L (3.5-5.1)
[2017-03-03] MEDS ORDERED: ZOLPIDEM 5 MG TAB PO PRN (01:30)
[2017-03-03] MEDS: morphine 4 MG/ML VIAL IV PRN ×5 (01:32→16:27)
[2017-03-03] MEDS: FAMOTIDINE 20 MG TAB PO SCH ×2 (01:39→08:14)
--- NOTE | 2017-03-03 01:59 | HP ---
Date/Time of Note Date/Time of Note DATE: 03/03/17 TIME: 01:45 Assessment/Plan VTE Prophylaxis VTE Prophylaxis Intervention: SCD's Lines/Catheters IV Catheter Type (from [facility], [place]): Saline Lock Assessment/Plan Chief Complaint/Hosp Course This is a 56-year-old male being admitted to the telemetry floor for: #1 hyponatremia: Patient's initial sodium was 123. Did receive normal saline bolus 1 L in the ED. Patient was started on D5 normal saline at 125 cc an hour by the ED, however I discontinued that would like to increase a sodium level slowly. Current time patient does appear stable and his mental status is intact so he does not require any hypertonic saline at this time. Will monitor BMP every 3 hours. Will provide fluid restriction 800 cc daily. Patient's urine does appear very dilute. Will check a urine osmolality and an osmolarity and fractional excretion of urine and microscopic urine to assess for etiology. This could possibly be SIADH secondary to his lisinopril however other causes of hyponatremia will also be worked up. Will obtain a nephrology consult. #2 diarrhea: Patient apparently has had diarrhea for 3 days with multiple bowel movements daily. He is afebrile at this time. With the patient having a history of HIV there is concern for possible opportunistic infections. Will check a CD4 count and HIV viral load. Will perform stool studies and check for opportunistic organisms as well. #3 HIV: We will check HIV viral load and CD4 count. Will resume patient's home HIV medications as indicated. Will consult ID if indicated. #4 History of CA: Patient has previous history of cardiac stents. Will resume patient's home home medications as indicated. #5 history of esophageal cancer: Stable at this time. #6 DVT and GI prophylaxis: SCDs, acid frederick Further treatment strategy will be implemented as per the clinical course Problems: HPI/ROS Admit Date/Time Admit Date/Time Mar 02, 2017 at 22:12 Hx of Present Illness Chief complaint: Diarrhea and headache This patient is a 56-year-old male with past medical history of HIV presenting to the emergency department with complaints of multiple episodes of diarrhea over the past 3 days. He states he had over 20 episodes of watery stool today. He also reports mild diffuse abdominal pain. Symptoms are constant. Symptoms are worsening. He took Tylenol at home with no relief of symptoms. He denies fevers, chills, nausea, vomiting, urinary symptoms, or other symptoms at this time other than headache. He is currently on antiretroviral therapy, however he does not recall his last viral load and does not recall exactly when he was last tested. Allergies: Ketorolac, tromethamine Occasions: See DEWEY GOYAL Const: Per HPI Eyes : No pain discharge or redness or change in visual acuity ENT: No pain, sore throat, congestion, congestion, dysphagia or discharge Respiratory: No shortness of breath, cough, sputum, wheezing, or pleuritic pain Cardiovascular: No chest pain, palpitation, PND, or edema GI : As per HPI Genitourinary: No dysuria, hematuria, flank pain , discharge or CVA tenderness Musculoskeletal: No joint pain, back pain, neck pain, restricted range of motion in neck or joints Skin: No rash, bruising or hives Neuro: As per HPI Endocrine: No polyuria, polydipsia, temperature intolerance Psych: No hallucination, depression, anxiety or suicidal ideation PMH/Family/Social Past Medical History History of hyponatremia, HIV positive, esophageal cancer, history of CA Past Surgical History Cardiac stent 2, cholecystectomy, appendectomy, hernia repair 3, Family History Significant Family History: no pertinent family hx Social History Alcohol Use: none Smoking Status: Never smoker Drug Use: none Exam/Review of Systems Vital Signs Vitals Vital Signs Date Time Temp Pulse Resp B/P Pulse Ox O2 Delivery O2 Flow Rate FiO2 03/03/17 00:05 65 03/02/17 23:56 97.7 19 118/77 96 03/02/17 22:41 Room Air Exam Exam General: Patient is a well-developed male sitting in bed in mild distress from his headache HEENT: Atraumatic, normocephalic. Patient is legally blind, Neck: Supple with full range of motion. No rigidity or meningismus Chest: Nontender Lungs: Clear to auscultation bilaterally no crackles rales or wheezing Heart: Normal S1-S2, Regular rhythm and rate. No murmurs appreciated Abdomen: Soft , nontender, nondistended , bowel sounds are present. No guarding no rebound tenderness , Extremities: Normal to inspection, no edema no cyanosis Neurologic: No mental status, speech is normal, alert and oriented 3. Cranial nerves II through XII intact. He walks around with a cane secondary to being legally blind. Additional Comments PROCEDURE: CT Brain without contrast. CLINICAL INDICATION: Headache TECHNIQUE: A multiplanar CT of the brain was performed on a CT scanner utilizing axial imaging from the skull base through the vertex without IV contrast. The CTDIvol is 43.38 mGy and the DLP is 720.23 mGycm. One or more of the following dose reduction techniques were utilized: Automated exposure control, adjustment of the mA and/or kV according to patient size, use of iterative reconstruction technique. COMPARISON: CT brain 04/12/2016 FINDINGS: No evidence of intracranial hemorrhage or abnormal extra-axial fluid collection. The brain parenchyma is normal attenuation morphology with preservation of keene white differentiation and age appropriate size of the ventricles and subarachnoid spaces. Bilateral ocular silicone/prosthesis The basal cisterns, posterior fossa contents, brainstem, craniocervical junction , orbits, pituitary axis, paranasal sinuses, mastoid air cells, and calvarium are unremarkable. IMPRESSION: 1. No intracranial hemorrhage or acute intracranial abnormality. No interval change. RPTAT:AAJJ Physician Kailyn Date Time Electronically viewed and signed by Physician Kailyn on 03/02/2017 22:10 DERRICK/ CC: JOCELIN BAILEY PA-C PROCEDURE: Chest x-ray CLINICAL INDICATION: Shortness of breath TECHNIQUE: Chest single view COMPARISON: 04/12/2016 FINDINGS: The heart is normal in size. The pulmonary vessels are normal in caliber. There is minimal linear left base atelectasis/scarring. Lungs otherwise clear.. The costophrenic angles are sharp. The visualized bony thorax is unremarkable. IMPRESSION: No acute cardiopulmonary disease. RPTAT: HH .Vasu Mcdonnell MD, MD Date Time Electronically viewed and signed by .Vasu Mcdonnell MD, on 03/02/2017 18:28 .W/ CC: JOCELIN BAILEY PA-C Labs Result Diagram: 03/02/17 1838 03/03/17 0037 Medications Medications Current Medications Ondansetron HCl (Zofran Inj) 4 mg Q6H PRN IV NAUSEA AND/OR VOMITING; Start at 23:30 Acetaminophen (Tylenol Tab) 650 mg Q6H PRN PO PAIN LEVEL 1-3 OR FEVER; Start at 23:30 Morphine Sulfate (morphine) 4 mg Q4H PRN IV PAIN LEVEL 7-10 Last administered on 03/03/17 01:32; Admin Dose 4 MG; Start 03/02/17 at 23:30 Docusate Sodium (Colace) 100 mg Q12H PRN PO CONSTIPATION; Start 03/02/17 at 23: 30 Bisacodyl (Dulcolax) 5 mg DAILY PRN PO CONSTIPATION; Start 03/02/17 at 23:30 Famotidine (Pepcid) 20 mg Q12 PO Last administered on 03/03/17 01:39; Admin Dose 20 MG; Start 03/02/17 at 23:30 Zolpidem Tartrate (Ambien) 10 mg QHS PRN PO INSOMNIA Last administered on 01:32; Admin Dose 10 MG; Start 03/03/17 at 01:30 FELY DOWNEY Mar 03, 2017 01:58
[2017-03-03 03:39] LABS: BASOPHILS % 0.2 % (0.0-2.0); EOSINOPHILS % 0.5 % (0.0-7.0); HEMOGLOBIN 16.3 g/dl (14.0-18.0); LYMPHOCYTES # 2.2 10^3/ul (0.8-2.9); LYMPHOCYTES % 26.3 % (15.0-51.0); MEAN CORPUSCULAR HEMOGLOBIN 31.4 pg (29.0-33.0); MEAN CORPUSCULAR HGB CONC 35.4 g/dl (32.0-37.0); MEAN CORPUSCULAR VOLUME 88.6 fl (82.0-101.0); MEAN PLATELET VOLUME 9.8 fl (7.4-10.4); MONOCYTE # 0.9 10^3/ul (0.3-0.9); NEUTROPHILS % 61.6 % (39.0-77.0); PLATELET COUNT 221 10^3/UL (140-415); RED BLOOD COUNT 5.19 10^6/ul (4.70-6.10); WHITE BLOOD COUNT 8.2 10^3/ul (4.8-10.8)
[2017-03-03 04:13] LABS: CALCIUM 9.3 mg/dl (8.4-10.2); CREATININE 1.06 mg/dl (0.61-1.24)
[2017-03-03] MEDS ORDERED: DEXTROSE 5% 1,000 ML IV ONE (08:30)
[2017-03-03 08:55] LABS: CALCIUM 9.3 mg/dl (8.4-10.2); CREATININE 1.1 mg/dl (0.61-1.24); POTASSIUM 4.7 mmol/L (3.5-5.1)
[2017-03-03 09:58] LABS: CHOL/HDL RATIO 4.8 RATIO; MAGNESIUM 2.3 mg/dl (1.7-2.5)
[2017-03-03 10:29] LABS: THYROID STIMULATING HORMONE 2.1 MIU/L (0.465-4.680)
[2017-03-03] MEDS ORDERED: DEXTROSE 5% 1,000 ML IV SCH (10:30)
[2017-03-03] MEDS ORDERED: LORAZEPAM 1 MG TAB PO ONE (11:30)
[2017-03-03 11:32] LABS: CALCIUM 9.5 mg/dl (8.4-10.2); POTASSIUM 4.4 mmol/L (3.5-5.1)
--- NOTE | 2017-03-03 13:08 | CONS ---
DATE OF ADMISSION: 03/02/2017 DATE OF CONSULTATION: 03/03/2017 REASON FOR CONSULTATION: Hyponatremia. REQUESTING PHYSICIAN: Dr. Nava. HISTORY OF PRESENT ILLNESS: This is a 56-year-old male with a past medical history of HIV, who presented to [facility] with complaints of diarrhea over the past 3 days, watery stools, and abdominal pain. The patient says his symptoms have been worsening despite taking home medications of Tylenol. The patient denied any episodes of hemoptysis, hematemesis, hematochezia. The patient came into the emergency room. Upon arrival, the patient was noted to be hyponatremic with a sodium level of 123 mEq/L. The patient was placed on IV fluids with improvement of the sodium level to 137 mEq. The patient states during this time, that he has been drinking copious amounts of IV fluids, Gatorade and . The patient states he has been eating limited amounts of oral intake. The patient otherwise denies any hemoptysis, hematemesis. PAST MEDICAL HISTORY: As stated above. History of HIV, history of esophageal cancer, previous history of hyponatremia. PAST SURGICAL HISTORY: Status post cardiac stent, cholecystectomy, appendectomy, hernia repair. FAMILY HISTORY: Noncontributory. SOCIAL HISTORY: Does not drink, smoke, or do drugs. MEDICATIONS: Reviewed. REVIEW OF SYSTEMS: Fourteen point review of systems conducted. Pertinent positives stated in HPI, otherwise negative. PHYSICAL EXAMINATION: VITAL SIGNS: Blood pressure is 98/61 respirations 19, pulse 62, temperature 97.2. HEENT: Head is normocephalic. NECK: Supple. HEART: Regular rate. LUNGS: Show diminished breath sounds at the base. ABDOMEN: Soft, nontender to palpation. No rebound or guarding. EXTREMITIES: Negative for clubbing, cyanosis. No edema. DERMATOLOGIC: Clean. No rashes. MUSCULOSKELETAL: No joint effusion. NEUROLOGIC: No focal deficits. LABORATORY: Currently shows sodium 137, potassium 4.7, chloride 108, BUN 9, creatinine 1.108. A.m. cortisol level of 1.8. TSH pending. Urine osmolality sodium levels are pending. Serum osmolality 275. IMPRESSION AND PLAN: This is a 56-year-old male, who presents with: 1. Hyponatremia. Etiology is likely acute secondary to volume depletion from gastrointestinal loss. The patient's sodium levels have corrected in approximately 12 hours after receiving intravenous fluids. Given the fact that the sodium levels have corrected greater than 12 mEq in a 24-hour period, we will start the patient on D5 water to try to decrease the sodium levels within a window of a correction of no more than 12 mEq. The patient likely had acute hyponatremia; however, as the baseline sodium was unknown. We will try to minimize over-correction. If sodium levels continue to rise despite aggressive D5 water, we will consider giving desmopressin. We will monitor serum sodium levels closely. Please note, that the patient has a noted cortisol deficiency on a random level. There may be a component of adrenal insufficiency contributing to the hyponatremia. Would consider an endocrine evaluation and/or cosyntropin stim test. 2. Diarrhea. Etiology is unclear. May be viral gastroenteritis. The patient is currently being evaluated by primary team. Stool studies have been sent. Consider GI evaluation. 3. Human immunodeficiency virus. Continue current human immunodeficiency virus medications. 4. Coronary artery disease. Continue medical management. 5. History of esophageal cancer. 6. Gastrointestinal and deep venous thrombosis prophylaxis. Thank you, Dr. Nava, for this interesting consult. It will be a pleasure to follow the patient throughout the hospital course. Dictated By: Fawad Bauer DO /gabe/tonia /Document#: [id number]
[2017-03-03 15:44] LABS: CALCIUM 9.8 mg/dl (8.4-10.2); CREATININE 1.02 mg/dl (0.61-1.24); POTASSIUM 4.4 mmol/L (3.5-5.1)
[2017-03-03] MEDS: ABACAVIR/LAMIVUDINE TAB PO SCH ×2 (16:30→16:36)
[2017-03-03] MEDS ORDERED: COSYNTROPIN 0.25 MG INJ IV ONE (16:30)
[2017-03-03] MEDS ORDERED: ATROPINE 1% 3.5 GM OPH OINT BOTH EYES SCH (17:00)
[2017-03-03] MEDS ORDERED: PREDNISOLONE ACET 1% 5 ML OPH BOTH EYES SCH (17:00)
[2017-03-03] MEDS ORDERED: TRIUMEQ TAB PO SCH (18:30)
[2017-03-03] MEDS ORDERED: ATORVASTATIN 80 MG TAB PO SCH (21:00)
[2017-03-03] MEDS ORDERED: LORAZEPAM 1 MG TAB PO SCH (22:00)
[2017-03-03 22:24] LABS: UR BACTERIA FEW /HPF (NONE SEEN); UR RBC 0 /HPF (0-5)
[2017-03-04] MEDS ORDERED: ATROPINE 1% 3.5 GM OPH OINT BOTH EYES SCH (09:00)
[2017-03-04] MEDS ORDERED: ASPIRIN (EC) 81 MG TAB PO SCH (09:00)
[2017-03-04 13:22] LABS: LYMPHOCYTE - % CD4 (HELPER) 33 % (30-61); LYMPHOCYTE - %CD8 (SUPPRESSOR) 42 % (12-42); LYMPHOCYTE - ABSOLUTE CD4 620 cells/uL (490-1740); LYMPHOCYTE - ABSOLUTE CD8 794 cells/uL (180-1170); LYMPHOCYTE - CD4/CD8 RATIO 0.78 (0.86-5.00)
== END 2017-03-03 21:00 | disposition left against medical advice (07) | DRG 977 ==
LOC: FTE 16:33 → TEL 22:12
PROVIDERS: ADMIT Family Medicine; ATTEND Family Medicine
DX: B20 Human immunodeficiency virus [HIV] disease (principal); E87.1 Hypo-osmolality and hyponatremia; R19.7 Diarrhea, unspecified; E86.0 Dehydration; R51 Headache; I25.2 Old myocardial infarction; H54.8 Legal blindness, as defined in USA
CPT/HCPCS: 36415; 70450; 71010; 80048; 80053; 80061; 81001; 82533; 83036; 83690; 83735; 83930; 83935; 84300; 84443; 85025; 86360; 87496; 87536; 96374; 96375; 96376; J2270; J2405; J7030; J7042; J7070

== ENCOUNTER 2017-03-24 07:16 | Inpatient (IN) | payer MEDICARE, OTHER ==
[~2017-03-24] VITALS: Ht 177.8 cm; Wt 94.4 kg
[~2017-03-24 07:16] MED LIST changes: +ATR1OO35 BOTH EYES; +BENZ200C43 PO; -CIPR500T4 PO; -CRES10 PO; +CYCL-319 PO; -DICY10CA60 PO; -HYDR-3498 PO; -HYDR-902 PO; -LISI10TA2 PO; +LISI20TA11 PO; -LORA2ORA2 PO; +METO10TA96 PO; -ONDA4TAB14 PO; +PRD1OP5 BOTH EYES; +ROSU20TA PO; -TAMS0.4C2 PO; -ZOLP10TA PO
[2017-03-24] MEDS ORDERED: SOD CHLORIDE 0.9% 1,000 ML IV STA (07:37)
[2017-03-24] MEDS ORDERED: ONDANSETRON 4 MG INJ IV STA ×2 (07:37→11:46)
[2017-03-24] MEDS ORDERED: HYDROmorphONE 1 MG/ML SYG IV STA ×3 (07:37→16:11)
[2017-03-24 08:42] LABS: BASOPHILS % 0.3 % (0.0-2.0); EOSINOPHILS # 0.1 10^3/ul (0.0-0.5); EOSINOPHILS % 1.1 % (0.0-7.0); HEMATOCRIT 42.6 % (42.0-52.0); HEMOGLOBIN 15.1 g/dl (14.0-18.0); LYMPHOCYTES # 2.4 10^3/ul (0.8-2.9); LYMPHOCYTES % 36.2 % (15.0-51.0); MEAN CORPUSCULAR HEMOGLOBIN 31.8 pg (29.0-33.0); MEAN CORPUSCULAR HGB CONC 35.4 g/dl (32.0-37.0); MEAN CORPUSCULAR VOLUME 89.7 fl (82.0-101.0); MEAN PLATELET VOLUME 9.2 fl (7.4-10.4); MONOCYTE # 0.6 10^3/ul (0.3-0.9); MONOCYTES % 8.5 % (0.0-11.0); NEUTROPHIL # 3.5 10^3/ul (1.6-7.5); NEUTROPHILS % 53.4 % (39.0-77.0); PLATELET COUNT 198 10^3/UL (140-415); RED BLOOD COUNT 4.75 10^6/ul (4.70-6.10); RED CELL DISTRIBUTION WIDTH 12.3 % (11.5-14.5); WHITE BLOOD COUNT 6.6 10^3/ul (4.8-10.8)
[2017-03-24 09:00] LABS: ALBUMIN/GLOBULIN RATIO 1.14; BILIRUBIN,INDIRECT 0.3 mg/dl (0-1.1); BILIRUBIN,TOTAL 0.3 mg/dl (0.2-1.3); CALCIUM 8.9 mg/dl (8.4-10.2); CREATININE 1.08 mg/dl (0.61-1.24); MAGNESIUM 1.7 mg/dl (1.7-2.5); POTASSIUM 4.4 mmol/L (3.5-5.1); TOTAL PROTEIN 7.5 g/dl (6.1-8.1)
[2017-03-24 10:22] LABS: ADD UMIC YES; UR ASCORBIC ACID NEGATIVE (NEGATIVE); UR BILIRUBIN (Dip) NEGATIVE (NEGATIVE); UR BLOOD (Dip) NEGATIVE (NEGATIVE); UR CLARITY CLEAR (CLEAR); UR COLOR YELLOW (YELLOW); UR GLUCOSE (Dip) 1+ mg/dL (NEGATIVE); UR KETONES (Dip) NEGATIVE (NEGATIVE); UR LEUKOCYTE ESTERASE (Dip) NEGATIVE Leu/ul (NEGATIVE); UR NITRITE (Dip) NEGATIVE (NEGATIVE); UR RBC 0 /HPF (0-5); UR SPECIFIC GRAVITY (Dip) 1.017 (1.003-1.030); UR TOTAL PROTEIN (Dip) 1+ mg/dl (NEGATIVE); UR UROBILINOGEN (Dip) NEGATIVE (NEGATIVE)
[2017-03-24] MEDS ORDERED: SOD CHLORIDE 0.9% 1,000 ML IV SCH (12:41)
--- NOTE | 2017-03-24 12:41 | ERA ---
ER Documentation Chief Complaint Date/Time DATE: 03/24/17 TIME: 12:39 Chief Complaint Pt BIB ra 881 for complaint of weakness, uncoordination and diarrhea X 2 da HPI This is a 56-year-old male who states that he has got generalized weakness for the past day and a half as well as having diarrhea that is watery off and on for the past 2 days nonbloody. He has no abdominal pain but says he feels generalized weakness and is having some carpal spasms that are consistent that he states when he has low sodium. The patient has been admitted to the hospital multiple times for hyponatremia. Denies any vomiting fever chest pain cough dysuria. The patient says his whole body hurts/body aches. ROS All systems reviewed and are negative except as per history of present illness. Medications Home Meds Active Scripts Lorazepam* (Lorazepam*) 1 Mg Tablet, 1 MG PO Q8, #6 TAB Prov:DANNI LOJA DO 01/23/16 Reported Medications Metoclopramide Hcl* (Metoclopramide Hcl*) 10 Mg Tablet, 10 MG PO TID Y for NAUSEA, TAB 03/03/17 Cyclobenzaprine Hcl* (Cyclobenzaprine Hcl*) 10 Mg Tablet, 10 MG PO QHS Y for MUSCLE SPASMS, #90 TAB 03/03/17 Atropine Sulfate* (Atropine Sulfate*) 3.5 Gm Oint, 1 APPLIC BOTH EYES QID, #1 TUB 03/02/17 Prednisolone Acetate* (Pred Forte*) 5 Ml Susp, 1 DROP BOTH EYES QID, EA 03/02/17 Benzonatate* (Benzonatate*) 200 Mg Capsule, 200 MG PO TID Y for COUGH, CAP 03/02/17 Rosuvastatin Calcium* (Crestor*) 20 Mg Tablet, 20 MG PO QHS, #30 TAB 03/02/17 Lisinopril* (Lisinopril*) 20 Mg Tablet, 20 MG PO BID, #30 TAB 03/02/17 Abacavir/Dolutegravir/Lamivudi (Triumeq Tablet) 1 Each Tablet, 1 EACH PO DAILY, TAB 12/18/15 Zolpidem Tartrate* (Zolpidem Tartrate*) 10 Mg Tablet, 10 MG PO QHS Y for INSOMNIA, #30 TAB 12/15/15 Aspirin* (Aspirin* EC) 81 Mg Tablet.dr, 81 MG PO DAILY, TAB 12/15/15 Carvedilol* (Carvedilol*) 25 Mg Tablet, 25 MG PO BID, TAB 06/15/14 Allergies Allergies: Coded Allergies: cortisone (Verified Allergy, Unknown, 03/03/17) pt states had reaction when knee injected ketorolac (Verified Allergy, Unknown, 03/02/17) ketorolac tromethamine (Verified Allergy, Unknown, 03/02/17) PMhx/Soc History of Surgery: Yes (Elissa/Appy, hernia repair X 2, B eye surgeries.) Anesthesia Reaction: No Hx Neurological Disorder: No Hx Respiratory Disorders: No Hx Cardiac Disorders: Yes (MIx3 w/ 2 stents) Hx Psychiatric Problems: No Hx Miscellaneous Medical Probl: Yes (HIV+, esophageal CA-chemo/rad, Blind) Hx Alcohol Use: No Hx Substance Use: No Hx Tobacco Use: No Smoking Status: Former smoker FmHx Family History: No coronary disease Physical Exam Vitals Vital Signs Date Time Temp Pulse Resp B/P Pulse Ox O2 Delivery O2 Flow Rate FiO2 03/24/17 10:00 98.1 75 16 130/96 100 Room Air 03/24/17 07:33 98.1 69 18 128/109 100 Physical Exam Const: Well-developed, well-nourished Head: Atraumatic, normocephalic Eyes: Normal Conjunctiva, PERRLA, EOMI, normal sclera, no nystagmus ENT: Normal External Ears, Nose and Mouth, moist mucus membranes. Neck: Full range of motion. No meningismus, no lymphadenopathy. Resp: Clear to auscultation bilaterally, no wheezing, rhonchi, rales Cardio: Regular rate and rhythm, no murmurs, S1 S2 present Abd: Soft, non tender x 4, non distended. Normal bowel sounds, no guarding or rebound, no pulsitile abdominal masses or bruits Skin: No petechiae or rashes, no ecchymosis , no maculopapular rash Back: No midline or flank tenderness Ext: No cyanosis, or edema, FROM x 4, normal inspection, neurovascularly intact x 4, bilateral carpal spasms Neur: Awake and alert, STR 5/5 x 4, sensation intact x 4, no focal findings, cerebellum intact Psych: Normal Mood and Affect, histrionic Result Diagram: 03/24/17 0815 03/24/17 0815 Results 24 hrs Laboratory Tests Test 03/24/17 08:15 03/24/17 09:40 White Blood Count 6.610^3/ul Red Blood Count 4.7510^6/ul Hemoglobin 15.1g/dl Hematocrit 42.6% Mean Corpuscular Volume 89.7fl Mean Corpuscular Hemoglobin 31.8pg Mean Corpuscular Hemoglobin Concent 35.4g/dl Red Cell Distribution Width 12.3% Platelet Count 35317^3/UL Mean Platelet Volume 9.2fl Neutrophils % 53.4% Lymphocytes % 36.2% Monocytes % 8.5% Eosinophils % 1.1% Basophils % 0.3% Nucleated Red Blood Cells % 0.0/100WBC Neutrophils # 3.510^3/ul Lymphocytes # 2.410^3/ul Monocytes # 0.610^3/ul Eosinophils # 0.110^3/ul Basophils # 0.010^3/ul Nucleated Red Blood Cells # 0.010^3/ul Sodium Level 124mmol/L Potassium Level 4.4mmol/L Chloride Level 92mmol/L Carbon Dioxide Level 25mmol/L Anion Gap 11 Blood Urea Nitrogen 9mg/dl Creatinine 1.08mg/dl Glucose Level 96mg/dl Calcium Level 8.9mg/dl Magnesium Level 1.7mg/dl Total Bilirubin 0.3mg/dl Direct Bilirubin 0.00mg/dl Indirect Bilirubin 0.3mg/dl Aspartate Amino Transf (AST/SGOT) 24IU/L Alanine Aminotransferase (ALT/SGPT) 37IU/L Alkaline Phosphatase 60IU/L Total Protein 7.5g/dl Albumin 4.0g/dl Globulin 3.50g/dl Albumin/Globulin Ratio 1.14 Urine Color YELLOW Urine Clarity CLEAR Urine pH 6.0 Urine Specific [place] 1.017 Urine Ketones NEGATIVEmg/dL Urine Nitrite NEGATIVEmg/dL Urine Bilirubin NEGATIVEmg/dL Urine Urobilinogen NEGATIVEmg/dL Urine Leukocyte Esterase NEGATIVELeu/ul Urine Microscopic RBC 0/HPF Urine Microscopic WBC 2/HPF Urine Hemoglobin NEGATIVEmg/dL Urine Glucose 1+mg/dL Urine Total Protein 1+mg/dl Current Medications Medications (Trade) Dose Ordered Sig/Tiffanie Route PRN Reason Start Time Stop Time Status Last Admin Dose Admin Sodium Chloride (NS) 1,000 ml @ 1,000 mls/hr Q1H STAT IV 03/24/17 07:37 03/24/17 08:36 DC 03/24/17 08:23 Hydromorphone HCl (Dilaudid) 1 mg ONCE STAT IV 03/24/17 07:37 03/24/17 07:39 DC 03/24/17 08:23 Ondansetron HCl (Zofran Inj) 4 mg ONCE STAT IV 03/24/17 07:37 03/24/17 07:39 DC 03/24/17 08:23 Hydromorphone HCl (Dilaudid) 1 mg ONCE STAT IV 03/24/17 11:46 03/24/17 11:47 DC 03/24/17 11:51 Ondansetron HCl (Zofran Inj) 4 mg ONCE STAT IV 03/24/17 11:46 03/24/17 11:47 DC 03/24/17 11:51 Procedures/MDM Patient once again has low sodium with a sodium of 124. The patient was given 1 L normal saline and some pain medication. The patient states that he is feeling better as far as pain control goes carpal spasms. We will admit again for low-sodium workup and will need careful correction Departure Diagnosis: Primary Impression: Acute hyponatremia Additional Impression: Generalized weakness Condition: Stable VERNON GUEVARA DO Mar 24, 2017 12:41
[2017-03-24] MEDS ORDERED: ONDANSETRON 4 MG INJ IV PRN ×2 (13:00→18:00)
[2017-03-24] MEDS ORDERED: ACETAMINOPHEN 325 MG TAB PO PRN ×2 (13:00→18:00)
[2017-03-24 14:12] VITALS: TEMP 98.3
[2017-03-24] MEDS ORDERED: CARI350T29 PO (16:58)
[2017-03-24 17:04] VITALS: Ht 177.8 cm; Wt 94.4 kg
[2017-03-24 17:14] VITALS: BP 125/72; PULSE 80; RESP 16
--- NOTE | 2017-03-24 17:31 | HP ---
Date/Time of Note Date/Time of Note DATE: 03/24/17 TIME: 17:23 Assessment/Plan VTE Prophylaxis VTE Prophylaxis Intervention: SCD's Assessment/Plan Chief Complaint/Hosp Course 1. Hyponatremia secondary to diarrhea-this is a chronic problem Treat with normal saline, the past hyponatremia resolved quite quickly with IV fluids Nephrology consultation 2. History of HIV Continue home medications 3. History of coronary disease status post PCI in the past Continue home medications 4. History of esophageal cancer status post chemoradiation in the past-no acute issues Prophylaxis: SCDs Problems: HPI/ROS Admit Date/Time Admit Date/Time Mar 24, 2017 at 12:42 Hx of Present Illness Patient is a 56-year-old male with history of persistent hyponatremia secondary to fluid loss from persistent diarrhea, HIV on HAART, coronary disease status post PCI in the past and history of esophageal cancer status post chemoradiation years ago now reportedly stable. Patient presents with weakness in his lower extremities, and ER patient was found once can be hyponatremic. Patient does report persistent diarrhea, patient has no other acute complaints this time ROS Constitutional: improved, no complaints Eyes: no complaints ENT: no complaints Respiratory: no complaints Cardiovascular: no complaints Gastrointestinal: diarrhea Genitourinary: no complaints Musculoskeletal: no complaints Skin: no complaints Neurologic: other (Weakness in the lower extremities) Endocrine: no complaints Lymphatic: no complaints Psychological: nl mood/affect, no complaints Immunologic: no complaints PMH/Family/Social Past Medical History History of hyponatremia from persistent diarrhea, HIV positive, esophageal cancer, history of [place] Past Surgical History Cardiac stent 2, cholecystectomy, appendectomy, hernia repair 3, Family History Significant Family History: no pertinent family hx Social History Alcohol Use: none Smoking Status: Never smoker Drug Use: none Exam/Review of Systems Vital Signs Vitals Vital Signs Date Time Temp Pulse Resp B/P Pulse Ox O2 Delivery O2 Flow Rate FiO2 03/24/17 17:14 97.3 80 16 125/72 95 Room Air Exam Constitutional: alert, oriented Respiratory: clear to auscultation Cardiovascular: regular rate and rhythm Gastrointestinal: soft, No distended Musculoskeletal: nl extremities to inspection Labs Result Diagram: 03/24/1715 03/24/1715 Medications Medications Current Medications Sodium Chloride (NS) 1,000 ml @ 80 mls/hr [id number] IV Last administered on t 12:41; Admin Dose 80 MLS/HR; Start 03/24/17 at 12:41; Stop 03/25/17 at 01:10 MEDHAT KILLIAN Mar 24, 2017 17:31
[2017-03-24] MEDS ORDERED: METOCLOPRAMIDE 10 MG TAB PO PRN (18:00)
[2017-03-24] MEDS ORDERED: CYCLOBENZAPRINE 10 MG TAB PO PRN (18:00)
[2017-03-24] MEDS ORDERED: BENZONATATE 100 MG CAP PO PRN (18:00)
[2017-03-24] MEDS ORDERED: HYDROCODONE/APAP (5/325) TAB PO PRN (18:00)
[2017-03-24] MEDS ORDERED: NACL 0.9% 3 ML SYG IV SCH (18:00)
[2017-03-24] MEDS ORDERED: DIPHENOXYLATE/ATROPINE TAB PO PRN (18:00)
[2017-03-24] MEDS ORDERED: INFLUENZA VIRUS VACCINE 0.5 ML (DISPENSING) IM* ONE (19:30)
[2017-03-24] MEDS ORDERED: hydrALAzine 20 MG INJ IV PRN (20:00)
[2017-03-24] MEDS ORDERED: LORAZEPAM 1 MG TAB PO ONE (20:00)
[2017-03-24] MEDS: CARISOPRODOL 350 MG TAB PO SCH (20:27)
[2017-03-24] MEDS: LISINOPRIL 20 MG TAB PO SCH (20:27)
[2017-03-24] MEDS: morphine 2 MG INJ IV PRN (20:27)
[2017-03-24] MEDS: SOD CHLORIDE 0.9% 1,000 ML IV SCH (20:28)
[2017-03-24 20:30] VITALS: BP 168/101; RESP 18
[2017-03-24] MEDS: ATORVASTATIN 80 MG TAB PO SCH (20:36)
[2017-03-24] MEDS: PREDNISOLONE ACET 1% 5 ML OPH BOTH EYES SCH (21:51)
[2017-03-24] MEDS: ATROPINE 1% 3.5 GM OPH OINT BOTH EYES SCH (21:51)
[2017-03-24] MEDS ORDERED: LORAZEPAM 1 MG TAB PO SCH (22:00)
[2017-03-24 22:26] VITALS: BP 144/78; PULSE 78
[2017-03-24] MEDS: ZOLPIDEM 5 MG TAB PO PRN (23:21)
[2017-03-25] MEDS: morphine 2 MG INJ IV PRN ×6 (00:47→21:59)
[2017-03-25] MEDS: HYDROCODONE/APAP (5/325) TAB PO PRN ×3 (02:34→18:31)
[2017-03-25 02:37] VITALS: BP 104/65; RESP 16
[2017-03-25] MEDS: SOD CHLORIDE 0.9% 1,000 ML IV SCH ×2 (03:58→14:09)
[2017-03-25 04:52] LABS: BASOPHIL # 0.1 10^3/ul (0.0-0.1); BASOPHILS % 0.6 % (0.0-2.0); EOSINOPHILS # 0.1 10^3/ul (0.0-0.5); EOSINOPHILS % 0.7 % (0.0-7.0); HEMATOCRIT 45.6 % (42.0-52.0); HEMOGLOBIN 15.9 g/dl (14.0-18.0); LYMPHOCYTES # 2.9 10^3/ul (0.8-2.9); MEAN CORPUSCULAR HEMOGLOBIN 31.4 pg (29.0-33.0); MEAN CORPUSCULAR HGB CONC 34.9 g/dl (32.0-37.0); MEAN CORPUSCULAR VOLUME 89.9 fl (82.0-101.0); MONOCYTES % 11.4 % (0.0-11.0); NEUTROPHIL # 4.7 10^3/ul (1.6-7.5); NEUTROPHILS % 54.1 % (39.0-77.0); PLATELET COUNT 216 10^3/UL (140-415); RED BLOOD COUNT 5.07 10^6/ul (4.70-6.10); RED CELL DISTRIBUTION WIDTH 12.9 % (11.5-14.5); WHITE BLOOD COUNT 8.7 10^3/ul (4.8-10.8)
[2017-03-25 05:19] LABS: CALCIUM 9.5 mg/dl (8.4-10.2); CREATININE 1.18 mg/dl (0.61-1.24); PHOSPHORUS 3.2 mg/dl (2.5-4.9); POTASSIUM 5.1 mmol/L (3.5-5.1)
[2017-03-25] MEDS: LORAZEPAM 1 MG TAB PO SCH ×3 (07:51→17:42)
[2017-03-25 08:07] VITALS: BP 130/77; RESP 18
[2017-03-25] MEDS: ABACAVIR/LAMIVUDINE TAB PO SCH (08:52)
[2017-03-25] MEDS: DOLUTEGRAVIR SODIUM 50 MG TABLET PO SCH (08:53)
[2017-03-25] MEDS: ASPIRIN (EC) 81 MG TAB PO SCH (08:55)
[2017-03-25] MEDS: ATROPINE 1% 3.5 GM OPH OINT BOTH EYES SCH ×4 (08:56→20:44)
[2017-03-25] MEDS: CARISOPRODOL 350 MG TAB PO SCH ×2 (08:56→20:45)
[2017-03-25] MEDS: LISINOPRIL 20 MG TAB PO SCH ×2 (08:56→20:46)
[2017-03-25] MEDS: PREDNISOLONE ACET 1% 5 ML OPH BOTH EYES SCH ×4 (08:56→20:44)
[2017-03-25] MEDS ORDERED: NON-FORMULARY/PATIENT OWN MED (Abacavir/Dolutegravir/Lamivudi (Triumeq Tablet) 1 EACH) PO SCH (09:00)
[2017-03-25 14:00] VITALS: BP 121/75; RESP 14
--- NOTE | 2017-03-25 19:09 | PN ---
Date/Time of Note Date/Time of Note DATE: 03/25/17 TIME: 19:07 Assessment/Plan VTE Prophylaxis VTE Prophylaxis Intervention: SCD's Lines/Catheters IV Catheter Type (from Nrs): Peripheral IV Urinary Cath still in place: No Assessment/Plan Chief Complaint/Hosp Course 1. Hyponatremia secondary to diarrhea-this is a chronic problem-improved Treat with normal saline, the past hyponatremia resolved quite quickly with IV fluids Nephrology consultation 2. History of HIV Continue home medications 3. History of coronary disease status post PCI in the past Continue home medications 4. History of esophageal cancer status post chemoradiation in the past-no acute issues 5. Lower extremity pain secondary to muscle spasms Continue Soma Prophylaxis: SCDs Problems: Subjective 24 Hr Interval Summary Musculoskeletal: other (Muscle pain) Exam/Review of Systems Vital Signs Vitals Vital Signs Date Time Temp Pulse Resp B/P Pulse Ox O2 Delivery O2 Flow Rate FiO2 03/25/17 14:00 98.0 73 14 121/75 97 03/24/17 17:14 Room Air Intake and Output 03/24/17 03/24/17 03/25/17 14:59 22:59 06:59 Intake Total 160 ml 1620 ml Output Total 1000 ml 900 ml Balance -840 ml 720 ml Exam Constitutional: alert, oriented Respiratory: clear to auscultation Cardiovascular: regular rate and rhythm Gastrointestinal: soft, No distended Musculoskeletal: nl extremities to inspection Results Result Diagram: 03/25/17 0430 03/25/17 0429 Results 24 hrs Laboratory Tests Test 03/25/17 04:29 03/25/17 04:30 03/25/17 06:40 Sodium Level 133 L Potassium Level 5.1 Chloride Level 103 # Carbon Dioxide Level 24 Anion Gap 11 Blood Urea Nitrogen 11 Creatinine 1.18 Glucose Level 106 Calcium Level 9.5 Phosphorus Level 3.2 Magnesium Level 2.0 White Blood Count 8.7 # Red Blood Count 5.07 Hemoglobin 15.9 Hematocrit 45.6 Mean Corpuscular Volume 89.9 Mean Corpuscular Hemoglobin 31.4 Mean Corpuscular Hemoglobin Concent 34.9 Red Cell Distribution Width 12.9 Platelet Count 216 Mean Platelet Volume 9.0 Neutrophils % 54.1 Lymphocytes % 33.0 Monocytes % 11.4 H Eosinophils % 0.7 Basophils % 0.6 Nucleated Red Blood Cells % 0.0 Neutrophils # 4.7 Lymphocytes # 2.9 Monocytes # 1.0 H Eosinophils # 0.1 Basophils # 0.1 Nucleated Red Blood Cells # 0.0 Troponin I < 0.012 Medications Medications Current Medications Sodium Chloride (NS) 1,000 ml @ 75 mls/hr [id number] IV Last administered on 14:09; Admin Dose 75 MLS/HR; Start 03/24/17 at 17:31 Ondansetron HCl (Zofran Inj) 4 mg Q6H PRN IV NAUSEA AND/OR VOMITING; Start 03/31 at 18:00 Acetaminophen (Tylenol Tab) 650 mg Q6H PRN PO PAIN LEVEL 1-3 OR FEVER; Start 03/24/17 at 18:00 Morphine Sulfate (morphine) 2 mg Q4H PRN IV SEVERE PAIN LEVEL 7-10 Last administered on 03/25/17 17:05; Admin Dose 2 MG; Start 03/24/17 at 18:00 Aspirin (Halfprin) 81 mg DAILY PO Last administered on 03/25/17 08:55; Admin Dose 81 MG; Start 03/25/17 at 09:00 Atropine Sulfate (Atropine 1% Oph Oint) 1 applic QID BOTH EYES Last administered on 03/25/17 17:42; Admin Dose 1 APPLIC; Start 03/24/17 at 21:00 Benzonatate (Tessalon) 200 mg TID PRN PO COUGH; Start 03/24/17 at 18:00 Carisoprodol (Soma) 350 mg BID PO Last administered on 03/25/17 08:56; Admin Dose 350 MG; Start 03/24/17 at 21:00 Carvedilol (Coreg) 25 mg BID PO Last administered on 03/25/17 08:55; Admin Dose 25 MG; Start 03/24/17 at 21:00 Cyclobenzaprine HCl (Flexeril) 10 mg QHS PRN PO MUSCLE SPASMS; Start 03/24/17 at 18:00 Lisinopril (Zestril) 20 mg BID PO Last administered on 03/25/17 08:56; Admin Dose 20 MG; Start 03/24/17 at 21:00 Metoclopramide HCl (Reglan) 10 mg TID PRN PO NAUSEA; Start 03/24/17 at 18:00 Prednisolone Acetate (Pred-Forte 1%) 1 drop QID BOTH EYES Last administered on 03/25/17 17:42; Admin Dose 1 DROP; Start 03/24/17 at 21:00 Zolpidem Tartrate (Ambien) 10 mg QHS PRN PO INSOMNIA Last administered on 03/24 23:21; Admin Dose 10 MG; Start 03/24/17 at 18:00 Atorvastatin Calcium (Lipitor) 80 mg DAILY@21 PO ; Start 03/24/17 at 21:00 Diphenoxylate HCl/ Atropine (Lomotil) 1 tab Q6H PRN PO DIARRHEA; Start at 18:00 Lorazepam (Ativan) 1 mg 08,12,16 PO Last administered on 03/25/17 17:42; Admin Dose 1 MG; Start 03/25/17 at 08:00 Hydralazine HCl (Apresoline) 10 mg Q4H PRN IV ELEVATED BLOOD PRESSURE; Start 03/24/17 at 20:00 Acetaminophen/ Hydrocodone Bitart ([place] (5/325)) 2 tab Q6H PRN PO PAIN Last administered on 03/25/17 18:31; Admin Dose 2 TAB; Start 03/24/17 at 20:00 Abacavir/ Lamivudine (Epzicom) 1 tab DAILY PO ; Start 03/25/17 at 09:00 Dolutegravir Sodium (Tivicay) 50 mg DAILY PO ; Start 03/25/17 at 09:00 MEDHAT KILLIAN Mar 25, 2017 19:09
[2017-03-25 20:06] VITALS: BP 137/94; RESP 18
[2017-03-25] MEDS: ATORVASTATIN 80 MG TAB PO SCH (20:45)
[2017-03-25] MEDS: ZOLPIDEM 5 MG TAB PO PRN (22:41)
[2017-03-26] MEDS: SOD CHLORIDE 0.9% 1,000 ML IV SCH ×3 (02:23→17:39)
[2017-03-26] MEDS: HYDROCODONE/APAP (5/325) TAB PO PRN ×4 (02:23→23:56)
[2017-03-26 02:38] VITALS: BP 92/58; RESP 18
[2017-03-26] MEDS: morphine 2 MG INJ IV PRN ×4 (05:20→20:15)
[2017-03-26 07:13] LABS: CALCIUM 9.5 mg/dl (8.4-10.2); CREATININE 1.45 mg/dl (0.61-1.24); POTASSIUM 4.3 mmol/L (3.5-5.1)
[2017-03-26] MEDS: LORAZEPAM 1 MG TAB PO SCH ×3 (08:00→17:38)
[2017-03-26] MEDS: CARISOPRODOL 350 MG TAB PO SCH ×2 (08:00→20:15)
[2017-03-26 08:13] VITALS: BP 117/76; RESP 20
[2017-03-26] MEDS: ABACAVIR/LAMIVUDINE TAB PO SCH (09:00)
[2017-03-26] MEDS: DOLUTEGRAVIR SODIUM 50 MG TABLET PO SCH (09:00)
[2017-03-26] MEDS: PREDNISOLONE ACET 1% 5 ML OPH BOTH EYES SCH ×4 (09:08→20:14)
[2017-03-26] MEDS: ASPIRIN (EC) 81 MG TAB PO SCH (09:08)
[2017-03-26] MEDS: ATROPINE 1% 3.5 GM OPH OINT BOTH EYES SCH ×4 (09:08→20:14)
[2017-03-26] MEDS: LISINOPRIL 20 MG TAB PO SCH ×2 (09:09→20:17)
--- NOTE | 2017-03-26 15:05 | PN ---
Date/Time of Note Date/Time of Note DATE: 03/26/17 TIME: 15:04 Assessment/Plan VTE Prophylaxis VTE Prophylaxis Intervention: SCD's Lines/Catheters IV Catheter Type (from Nrs): Peripheral IV Urinary Cath still in place: No Assessment/Plan Chief Complaint/Hosp Course 1. Hyponatremia secondary to diarrhea-this is a chronic problem-improved Treat with normal saline, the past hyponatremia resolved quite quickly with IV fluids Nephrology consultation 2. History of HIV Continue home medications 3. History of coronary disease status post PCI in the past Continue home medications 4. History of esophageal cancer status post chemoradiation in the past-no acute issues 5. Lower extremity pain secondary to muscle spasms Continue Soma 2. Acute on likely mild CKD Increase IV fluid rate Nephrology consultation Prophylaxis: SCDs Dispo: Plan is for likely DC in a.m. Problems: Subjective 24 Hr Interval Summary ENT: sore throat Exam/Review of Systems Vital Signs Vitals Vital Signs Date Time Temp Pulse Resp B/P Pulse Ox O2 Delivery O2 Flow Rate FiO2 03/26/17 08:13 98.6 79 20 117/76 93 03/24/17 17:14 Room Air Intake and Output 03/25/17 03/25/17 03/26/17 15:00 23:00 07:00 Intake Total 500 ml 1640 ml 1150 ml Output Total 1325 ml Balance 500 ml 1640 ml -175 ml Exam Constitutional: alert, oriented Respiratory: clear to auscultation Cardiovascular: regular rate and rhythm Gastrointestinal: soft, No distended Musculoskeletal: nl extremities to inspection Results Result Diagram: 03/25/17 0430 03/26/17 0557 Results 24 hrs Laboratory Tests Test 03/26/17 05:57 Sodium Level 135 Potassium Level 4.3 Chloride Level 103 Carbon Dioxide Level 24 Anion Gap 12 Blood Urea Nitrogen 17 Creatinine 1.45 H Glucose Level 112 Calcium Level 9.5 Medications Medications Current Medications Sodium Chloride (NS) 1,000 ml @ 75 mls/hr [id number] IV Last administered on t 02:23; Admin Dose 75 MLS/HR; Start 03/24/17 at 17:31 Ondansetron HCl (Zofran Inj) 4 mg Q6H PRN IV NAUSEA AND/OR VOMITING; Start 03/31 at 18:00 Acetaminophen (Tylenol Tab) 650 mg Q6H PRN PO PAIN LEVEL 1-3 OR FEVER; Start 03/24/17 at 18:00 Morphine Sulfate (morphine) 2 mg Q4H PRN IV SEVERE PAIN LEVEL 7-10 Last administered on 03/26/17 09:22; Admin Dose 2 MG; Start 03/24/17 at 18:00 Aspirin (Halfprin) 81 mg DAILY PO Last administered on 03/26/17 09:08; Admin Dose 81 MG; Start 03/25/17 at 09:00 Atropine Sulfate (Atropine 1% Oph Oint) 1 applic QID BOTH EYES Last administered on 03/26/17 12:48; Admin Dose 1 APPLIC; Start 03/24/17 at 21:00 Benzonatate (Tessalon) 200 mg TID PRN PO COUGH; Start 03/24/17 at 18:00 Carisoprodol (Soma) 350 mg BID PO Last administered on 03/26/17 08:00; Admin Dose 350 MG; Start 03/24/17 at 21:00 Carvedilol (Coreg) 25 mg BID PO Last administered on 03/26/17 09:08; Admin Dose 25 MG; Start 03/24/17 at 21:00 Cyclobenzaprine HCl (Flexeril) 10 mg QHS PRN PO MUSCLE SPASMS Last administered on 03/25/17 20:44; Admin Dose 10 MG; Start 03/24/17 at 18:00 Lisinopril (Zestril) 20 mg BID PO Last administered on 03/26/17 09:09; Admin Dose 20 MG; Start 03/24/17 at 21:00 Metoclopramide HCl (Reglan) 10 mg TID PRN PO NAUSEA; Start 03/24/17 at 18:00 Prednisolone Acetate (Pred-Forte 1%) 1 drop QID BOTH EYES Last administered on 03/26/17 12:48; Admin Dose 1 DROP; Start 03/24/17 at 21:00 Zolpidem Tartrate (Ambien) 10 mg QHS PRN PO INSOMNIA Last administered on 03/25 22:41; Admin Dose 10 MG; Start 03/24/17 at 18:00 Atorvastatin Calcium (Lipitor) 80 mg DAILY@21 PO Last administered on 20:45; Admin Dose 80 MG; Start 03/24/17 at 21:00 Diphenoxylate HCl/ Atropine (Lomotil) 1 tab Q6H PRN PO DIARRHEA; Start at 18:00 Lorazepam (Ativan) 1 mg 08,12,16 PO Last administered on 03/26/17 12:28; Admin Dose 1 MG; Start 03/25/17 at 08:00 Hydralazine HCl (Apresoline) 10 mg Q4H PRN IV ELEVATED BLOOD PRESSURE; Start 03/24/17 at 20:00 Acetaminophen/ Hydrocodone Bitart ([place] (5/325)) 2 tab Q6H PRN PO PAIN Last administered on 03/26/17 11:16; Admin Dose 2 TAB; Start 03/24/17 at 20:00 Abacavir/ Lamivudine (Epzicom) 1 tab DAILY PO ; Start 03/25/17 at 09:00 Dolutegravir Sodium (Tivicay) 50 mg DAILY PO ; Start 03/25/17 at 09:00 MEDHAT KILLIAN Mar 26, 2017 15:05
[2017-03-26 15:29] VITALS: BP 136/85; RESP 20
[2017-03-26] MEDS: ATORVASTATIN 80 MG TAB PO SCH (20:15)
[2017-03-26 21:04] VITALS: BP 124/77; RESP 18
[2017-03-26] MEDS: ZOLPIDEM 5 MG TAB PO PRN (22:48)
[2017-03-27] MEDS: morphine 2 MG INJ IV PRN ×3 (01:13→09:33)
[2017-03-27 02:59] VITALS: BP 99/58; RESP 18
[2017-03-27 05:41] LABS: CALCIUM 9.2 mg/dl (8.4-10.2); CREATININE 1.11 mg/dl (0.61-1.24)
[2017-03-27] MEDS: SOD CHLORIDE 0.9% 1,000 ML IV SCH (06:06)
[2017-03-27] MEDS: HYDROCODONE/APAP (5/325) TAB PO PRN ×2 (06:49→12:54)
[2017-03-27 07:36] VITALS: BP 121/82; RESP 18
[2017-03-27] MEDS: LISINOPRIL 20 MG TAB PO SCH (08:39)
[2017-03-27] MEDS: ASPIRIN (EC) 81 MG TAB PO SCH (08:39)
[2017-03-27] MEDS: CARISOPRODOL 350 MG TAB PO SCH (08:40)
[2017-03-27] MEDS: LORAZEPAM 1 MG TAB PO SCH ×2 (08:41→11:52)
[2017-03-27] MEDS: ATROPINE 1% 3.5 GM OPH OINT BOTH EYES SCH ×2 (08:41→12:23)
[2017-03-27] MEDS: PREDNISOLONE ACET 1% 5 ML OPH BOTH EYES SCH ×2 (08:42→12:23)
[2017-03-27] MEDS: DOLUTEGRAVIR SODIUM 50 MG TABLET PO SCH (09:00)
[2017-03-27] MEDS: ABACAVIR/LAMIVUDINE TAB PO SCH (09:00)
--- NOTE | 2017-03-27 11:04 | PDOCDIS ---
Discharge Instructions CONDITION Patient Condition: Good HOME CARE INSTRUCTIONS: Diet Instructions: Regular ACTIVITY: Activity Restrictions: No Restrictions FOLLOW UP/APPOINTMENTS Follow-up Plan F/U WITH YOUR PCP IN 1-2 WEEKS MEDHAT KILLIAN Mar 27, 2017 11:04
--- NOTE | 2017-03-27 14:00 | DS ---
Date/Time of Note Date/Time of Note DATE: 03/27/17 TIME: 13:57 Discharge Summary Admission/Discharge Info Admit Date/Time Mar 24, 2017 at 12:42 Discharge Date/Time March 27, 2017 Discharge Diagnosis 1. Hyponatremia secondary to diarrhea-this is a chronic problem-resolved 2. History of HIV Continue home medications 3. History of coronary disease status post PCI in the past Continue home medications 4. History of esophageal cancer status post chemoradiation in the past-no acute issues 5. Lower extremity pain secondary to muscle spasms Continue Soma 6. Acute on likely mild CKD-stable Patient Condition: Good Hospital Course Patient is a 56-year-old male with history of persistent hyponatremia secondary to fluid loss from persistent diarrhea, HIV on HAART, coronary disease status post PCI in the past and history of esophageal cancer status post chemoradiation years ago now reportedly stable. Patient presents with weakness in his lower extremities, pt was found to be hyponatremic, pt was started on normal saline and hyponatremia resolved. Patient's diarrhea did also resolved while in house, creatinine did rise one point but did stabilize with IV fluids. On the day of discharge patient's vitals, labs and physical exam stable and no further acute complaints questions are answered. Home Meds Active Scripts Lorazepam* (Lorazepam*) 1 Mg Tablet, 1 MG PO Q8, #6 TAB Prov:DANNI LOJA DO 01/23/16 Reported Medications Carisoprodol* (Carisoprodol*) 350 Mg Tablet, 350 MG PO BID, TAB 03/24/17 Metoclopramide Hcl* (Metoclopramide Hcl*) 10 Mg Tablet, 10 MG PO TID Y for NAUSEA, TAB 03/03/17 Cyclobenzaprine Hcl* (Cyclobenzaprine Hcl*) 10 Mg Tablet, 10 MG PO QHS Y for MUSCLE SPASMS, #90 TAB 03/03/17 Atropine Sulfate* (Atropine Sulfate*) 3.5 Gm Oint, 1 APPLIC BOTH EYES QID, #1 TUB 03/02/17 Prednisolone Acetate* (Pred Forte*) 5 Ml Susp, 1 DROP BOTH EYES QID, EA 03/02/17 Benzonatate* (Benzonatate*) 200 Mg Capsule, 200 MG PO TID Y for COUGH, CAP 03/02/17 Rosuvastatin Calcium* (Crestor*) 20 Mg Tablet, 20 MG PO QHS, #30 TAB 03/02/17 Lisinopril* (Lisinopril*) 20 Mg Tablet, 20 MG PO BID, #30 TAB 03/02/17 Abacavir/Dolutegravir/Lamivudi (Triumeq Tablet) 1 Each Tablet, 1 EACH PO DAILY, TAB 12/18/15 Zolpidem Tartrate* (Zolpidem Tartrate*) 10 Mg Tablet, 10 MG PO QHS Y for INSOMNIA, #30 TAB 12/15/15 Aspirin* (Aspirin* EC) 81 Mg Tablet.dr, 81 MG PO DAILY, TAB 12/15/15 Carvedilol* (Carvedilol*) 25 Mg Tablet, 25 MG PO BID, TAB 06/15/14 Follow-up Plan F/U WITH YOUR PCP IN 1-2 WEEKS Primary Care Provider Not On Staff Doctor Time spent on discharge: > 30 minutes MEDHAT KILLIAN Mar 27, 2017 14:00
--- NOTE | 2017-03-27 15:59 | RADRPT ---
Vent Rate: 69 bpm RR Interval: 0 msec IA Interval: 162 msec QRS Duration: 106 msec QT Interval: 408 msec QTC Interval: 437 msec P-R-T [place]: 50 - 58 - 69 degrees Normal sinus rhythm Incomplete right bundle branch block Borderline ECG Electronically Signed By: Gallo Marie [id number]
== END 2017-03-27 14:30 | disposition home or self-care (01) | DRG 641 ==
LOC: E/R 07:16 → PP2 12:42
PROVIDERS: ADMIT Internal Medicine; ATTEND Internal Medicine
DX: E87.1 Hypo-osmolality and hyponatremia (principal); I25.10 Atherosclerotic heart disease of native coronary artery without angina pectoris; M62.838 Other muscle spasm; M79.662 Pain in left lower leg; M79.661 Pain in right lower leg; R19.7 Diarrhea, unspecified; Z86.19 Personal history of other infectious and parasitic diseases; Z95.5 Presence of coronary angioplasty implant and graft; Z85.01 Personal history of malignant neoplasm of esophagus; Z92.21 Personal history of antineoplastic chemotherapy
CPT/HCPCS: 36415; 80048; 80053; 81001; 83735; 84100; 84484; 85025; 87081; 90686; 93005; 96374; 96375; 96376; 97161; J1170; J2270; J2405; J7030

== ENCOUNTER 2017-03-29 12:26 | Emergency (ER) | payer MEDICARE, OTHER ==
[~2017-03-29] VITALS: Ht 177.8 cm; Wt 118.0 kg
[~2017-03-29 12:26] MED LIST changes: +CARI350T29 PO
[2017-03-29 12:36] VITALS: Ht 177.8 cm; Wt 118.0 kg
[2017-03-29] MEDS ORDERED: SOD CHLORIDE 0.9% 1,000 ML IV STA ×2 (13:42→14:01)
[2017-03-29] MEDS ORDERED: METOCLOPRAMIDE 10 MG INJ IV STA (14:01)
[2017-03-29] MEDS ORDERED: DIPHENHYDRAMINE 50 MG INJ IV STA (14:01)
[2017-03-29 14:36] LABS: BASOPHILS % 0.5 % (0.0-2.0); EOSINOPHILS # 0.1 10^3/ul (0.0-0.5); EOSINOPHILS % 0.8 % (0.0-7.0); HEMATOCRIT 43.4 % (42.0-52.0); HEMOGLOBIN 15.3 g/dl (14.0-18.0); LYMPHOCYTES # 2.5 10^3/ul (0.8-2.9); LYMPHOCYTES % 40.2 % (15.0-51.0); MEAN CORPUSCULAR HGB CONC 35.3 g/dl (32.0-37.0); MEAN CORPUSCULAR VOLUME 90.8 fl (82.0-101.0); MEAN PLATELET VOLUME 8.9 fl (7.4-10.4); MONOCYTE # 0.6 10^3/ul (0.3-0.9); MONOCYTES % 9.9 % (0.0-11.0); NEUTROPHILS % 48.4 % (39.0-77.0); PLATELET COUNT 169 10^3/UL (140-415); RED BLOOD COUNT 4.78 10^6/ul (4.70-6.10); RED CELL DISTRIBUTION WIDTH 12.4 % (11.5-14.5); WHITE BLOOD COUNT 6.3 10^3/ul (4.8-10.8)
[2017-03-29 14:42] LABS: ADD UMIC YES; UR ASCORBIC ACID NEGATIVE (NEGATIVE); UR BILIRUBIN (Dip) NEGATIVE (NEGATIVE); UR BLOOD (Dip) NEGATIVE (NEGATIVE); UR CLARITY CLEAR (CLEAR); UR COLOR YELLOW (YELLOW); UR GLUCOSE (Dip) 1+ mg/dL (NEGATIVE); UR KETONES (Dip) NEGATIVE (NEGATIVE); UR LEUKOCYTE ESTERASE (Dip) NEGATIVE Leu/ul (NEGATIVE); UR NITRITE (Dip) NEGATIVE (NEGATIVE); UR RBC 0 /HPF (0-5); UR SPECIFIC GRAVITY (Dip) 1.026 (1.003-1.030); UR TOTAL PROTEIN (Dip) 2+ mg/dl (NEGATIVE); UR UROBILINOGEN (Dip) NEGATIVE (NEGATIVE)
--- NOTE | 2017-03-29 14:42 | RADRPT ---
PROCEDURE: CT Brain without contrast. CLINICAL INDICATION: Pain, headache TECHNIQUE: Routine CT scan of the brain was performed on a high resolution multi detector scanner without intravenous contrast. One or more of the following dose reduction techniques were used: Auto mated exposure control; Adjustment of the mA and/or kV according to patient size; Use of iterative r econstruction technique. CTDI = 44 mGy. DLP = 720 mGy-cm. COMPARISON: CT brain 03/02/2017 FINDINGS: Hemorrhage: No evidence of intracranial hemorrhage. Acute ischemic changes: No evidence of acute ischemic changes. Mass effect: None. Parenchymal volume: Within normal limits for age. Ventricular system: Concordant with parenchymal volume. Chronic changes: Parenchymal attenuation is within normal limits. Atherosclerotic calcifications of the cavernous portions of both internal carotid arteries are present. Extracranial soft tissues: Therapeutic injections within both globes again noted. Calvarium: No fractures. Paranasal sinuses: Visualized paranasal sinuses are clear. Mastoid air cells: Visualized mastoid air cells are clear. IMPRESSION: No acute intracranial abnormalities. Normal appearance of the brain parenchyma. Unchanged from the previous examination. RPTAT: AADD .Ming Max MD, Date Time Electronically viewed and signed by .Ming Max MD, on 03/29/2017 14:42 .B/
[2017-03-29 15:08] LABS: INR 0.91; PROTIME 12.2 Sec (12.2-14.2)
[2017-03-29 15:09] LABS: PARTIAL THROMBOPLASTIN TIME 35.4 Sec (25.0-35.0)
[2017-03-29 15:16] LABS: ALBUMIN/GLOBULIN RATIO 1.21; BILIRUBIN,INDIRECT 0.2 mg/dl (0-1.1); BILIRUBIN,TOTAL 0.2 mg/dl (0.2-1.3); CALCIUM 8.8 mg/dl (8.4-10.2); CREATININE 1.17 mg/dl (0.61-1.24); POTASSIUM 4.7 mmol/L (3.5-5.1); TOTAL PROTEIN 7.3 g/dl (6.1-8.1)
[2017-03-29] MEDS ORDERED: HYDROmorphONE 1 MG/ML SYG IV STA (16:00)
--- NOTE | 2017-03-29 18:09 | ERD ---
ER Documentation Chief Complaint Date/Time DATE: 03/29/17 TIME: 13:30 Chief Complaint BIB RA FOR HEADCAHE , DIZZINESS , B/L LEG CRAMPS HPI 56-year-old male, history of HIV on HAART with most recent CD4 count in February was 620, coronary artery disease status post PCI, esophageal cancer presents to the ED with multiple complaints, primarily leg cramps also headache , ongoing nonbloody, non mucoid diarrhea and generalized, gradual onset, moderate headache. No relieving or exacerbating factors. Denies neck pain, visual changes, focal weakness or numbness. No chest pain, palpitations or shortness of breath. Denies abdominal pain or back pain. No dysuria, polyuria or hematuria. No fevers or chills. Patient has had a long history of leg cramps and headaches with multiple ED visits dated back to 2012 and chronic diarrhea, intermittently since 2015. He was admitted for workup of these symptoms of hyponatremia February 21, 2017. Culture and workup for opportunistic organisms was negative. ROS All systems reviewed and are negative except as per history of present illness. Medications Home Meds Active Scripts Tramadol HCl (Tramadol HCl) 50 Mg Tablet, 50 MG PO Q6 Y for PAIN, #12 TAB Prov:AUBREY BLANCO MD 03/29/17 Lorazepam* (Lorazepam*) 1 Mg Tablet, 1 MG PO Q8, #6 TAB Prov:DANNI LOJA DO 01/23/16 Reported Medications Carisoprodol* (Carisoprodol*) 350 Mg Tablet, 350 MG PO BID, TAB 03/24/17 Metoclopramide Hcl* (Metoclopramide Hcl*) 10 Mg Tablet, 10 MG PO TID Y for NAUSEA, TAB 03/03/17 Cyclobenzaprine Hcl* (Cyclobenzaprine Hcl*) 10 Mg Tablet, 10 MG PO QHS Y for MUSCLE SPASMS, #90 TAB 03/03/17 Atropine Sulfate* (Atropine Sulfate*) 3.5 Gm Oint, 1 APPLIC BOTH EYES QID, #1 TUB 03/02/17 Prednisolone Acetate* (Pred Forte*) 5 Ml Susp, 1 DROP BOTH EYES QID, EA 03/02/17 Benzonatate* (Benzonatate*) 200 Mg Capsule, 200 MG PO TID Y for COUGH, CAP 03/02/17 Rosuvastatin Calcium* (Crestor*) 20 Mg Tablet, 20 MG PO QHS, #30 TAB 03/02/17 Lisinopril* (Lisinopril*) 20 Mg Tablet, 20 MG PO BID, #30 TAB 03/02/17 Abacavir/Dolutegravir/Lamivudi (Triumeq Tablet) 1 Each Tablet, 1 EACH PO DAILY, TAB 12/18/15 Zolpidem Tartrate* (Zolpidem Tartrate*) 10 Mg Tablet, 10 MG PO QHS Y for INSOMNIA, #30 TAB 12/15/15 Aspirin* (Aspirin* EC) 81 Mg Tablet.dr, 81 MG PO DAILY, TAB 12/15/15 Carvedilol* (Carvedilol*) 25 Mg Tablet, 25 MG PO BID, TAB 06/15/14 Allergies Allergies: Coded Allergies: cortisone (Verified Allergy, Unknown, 03/03/17) pt states had reaction when knee injected ketorolac (Verified Allergy, Unknown, 03/02/17) ketorolac tromethamine (Verified Allergy, Unknown, 03/02/17) PMhx/Soc Reviewed in chart. As per HPI. History of Surgery: Yes (gallbladder removed, appendix removed, hernia repairs , L foot fx, R foot fx) Anesthesia Reaction: No Hx Neurological Disorder: No Hx Respiratory Disorders: No Hx Cardiac Disorders: Yes (stents placed in heart, 3 heart attacks) Hx Psychiatric Problems: No Hx Miscellaneous Medical Probl: Yes (HIV on HAART,hyponatremia) Hx Alcohol Use: No Hx Substance Use: No Hx Tobacco Use: No Smoking Status: Never smoker FmHx No subarachnoid hemorrhage, stroke or cancer Physical Exam Vitals Vital Signs Date Time Temp Pulse Resp B/P Pulse Ox O2 Delivery O2 Flow Rate FiO2 03/29/17 20:07 97.5 78 18 130/63 99 Room Air 03/29/17 12:36 97.1 72 18 101/77 96 Physical Exam Const: [] Head: Atraumatic Eyes: Normal Conjunctiva ENT: Normal External Ears, Nose and Mouth. Neck: Full range of motion..~ No meningismus. Resp: Clear to auscultation bilaterally Cardio: Regular rate and rhythm, no murmurs Abd: Soft, non tender, non distended. Normal bowel sounds Skin: No petechiae or rashes Back: No midline or flank tenderness Ext: No cyanosis, or edema Neur: Awake and alert Psych: Normal Mood and Affect Result Diagram: 03/29/17 1349 03/29/17 1349 Results 24 hrs Laboratory Tests Test 03/29/17 13:49 03/29/17 14:00 White Blood Count 6.310^3/ul Red Blood Count 4.7810^6/ul Hemoglobin 15.3g/dl Hematocrit 43.4% Mean Corpuscular Volume 90.8fl Mean Corpuscular Hemoglobin 32.0pg Mean Corpuscular Hemoglobin Concent 35.3g/dl Red Cell Distribution Width 12.4% Platelet Count 87955^3/UL Mean Platelet Volume 8.9fl Neutrophils % 48.4% Lymphocytes % 40.2% Monocytes % 9.9% Eosinophils % 0.8% Basophils % 0.5% Nucleated Red Blood Cells % 0.0/100WBC Neutrophils # 3.010^3/ul Lymphocytes # 2.510^3/ul Monocytes # 0.610^3/ul Eosinophils # 0.110^3/ul Basophils # 0.010^3/ul Nucleated Red Blood Cells # 0.010^3/ul Prothrombin Time 12.2Sec Prothrombin Time Ratio 1.0 INR International Normalized Ratio 0.91 Activated Partial Thromboplast Time 35.4Sec Sodium Level 125mmol/L Potassium Level 4.7mmol/L Chloride Level 94mmol/L Carbon Dioxide Level 23mmol/L Anion Gap 13 Blood Urea Nitrogen 9mg/dl Creatinine 1.17mg/dl Glucose Level 99mg/dl Calcium Level 8.8mg/dl Total Bilirubin 0.2mg/dl Direct Bilirubin 0.00mg/dl Indirect Bilirubin 0.2mg/dl Aspartate Amino Transf (AST/SGOT) 28IU/L Alanine Aminotransferase (ALT/SGPT) 40IU/L Alkaline Phosphatase 55IU/L Total Protein 7.3g/dl Albumin 4.0g/dl Globulin 3.30g/dl Albumin/Globulin Ratio 1.21 Urine Color YELLOW Urine Clarity CLEAR Urine pH 5.0 Urine Specific [place] 1.026 Urine Ketones NEGATIVEmg/dL Urine Nitrite NEGATIVEmg/dL Urine Bilirubin NEGATIVEmg/dL Urine Urobilinogen NEGATIVEmg/dL Urine Leukocyte Esterase NEGATIVELeu/ul Urine Microscopic RBC 0/HPF Urine Microscopic WBC 2/HPF Urine Hemoglobin NEGATIVEmg/dL Urine Random Sodium 73mmol/L Urine Glucose 1+mg/dL Urine Total Protein 2+mg/dl Current Medications Medications (Trade) Dose Ordered Sig/Tiffanie Route PRN Reason Start Time Stop Time Status Last Admin Dose Admin Sodium Chloride 1,000 ml @ 1,000 mls/hr Q1H STAT IV 03/29/17 13:42 03/29/17 14:41 DC 03/29/17 14:56 Sodium Chloride (NS) 1,000 ml @ 1,000 mls/hr Q1H STAT IV 03/29/17 14:01 03/29/17 15:00 DC 03/29/17 14:59 Metoclopramide HCl (Reglan) 10 mg ONCE STAT IV 03/29/17 14:01 03/29/17 14:03 DC 03/29/17 14:57 Diphenhydramine HCl (Benadryl) 50 mg ONCE STAT IV 03/29/17 14:01 03/29/17 14:03 DC 03/29/17 14:57 Hydromorphone HCl (Dilaudid) 1 mg ONCE STAT IV 03/29/17 16:00 03/29/17 16:02 DC 03/29/17 16:14 Cyclobenzaprine HCl (Flexeril) 10 mg ONCE ONCE PO 03/29/17 19:00 03/29/17 19:01 DC 03/29/17 18:55 Procedures/MDM DOCUMENTS REVIEWED: ED nurse, prior ED, prior records including recent admission for hyponatremia [employer]-year-old male, history of HIV on HAART with most recent CD4 count symptoms 620 in February, coronary artery disease status post PCI, esophageal cancer presents to the ED with multiple complaints, primarily leg cramps also headache, ongoing nonbloody, non mucoid diarrhea and generalized , gradual onset, moderate headache. Mild hyponatremia treated with normal saline. Chronic diarrhea of uncertain etiology as he has had a recent extensive workup. Toxigenic C. difficile is pending. Abdominal exam is benign without rebound, guarding or signs of peritonitis. No urinary tract infection. With regards to his headache, patient presents with non-maximal, non-sudden, non-migrainous, non-intractable, non-aurus headache and neuro imaging/lumbar puncture is not indicated in this patient who presents with typical recurrence of baseline primary headache disorder. Symptoms improved with analgesics, hydration and muscle relaxants. Stable for discharge of precautionary instructions and urgent, outpatient follow-up within 48 hours as counseled. Counseled patient regarding diagnostic workup, diagnosis and need for followup. Understands to return to ED if symptoms recur, worsen or any other concerns. Observation Note: Time: 4 hours Family Hx: No Hypertension Evaluation: Multiple exams showed improving symptoms without evidence of an occult bacterial infection and he is stable for discharge Departure Diagnosis: Primary Impression: Leg cramps Additional Impressions: Cephalgia Headache type: unspecified Headache chronicity pattern: episodic headache Intractability: not intractable Qualified Code: R51 - Nonintractable episodic headache, unspecified headache type Diarrhea Diarrhea type: unspecified type Qualified Code: R19.7 - Diarrhea, unspecified type HIV (human immunodeficiency virus infection) On HAART (highly active antiretroviral) therapy Hyponatremia Condition: Stable (Improved) AUBREY BLANCO MD Mar 29, 2017 18:09
[2017-03-29] MEDS ORDERED: TRAM50TA2 PO (18:20)
[2017-03-29] MEDS ORDERED: CYCLOBENZAPRINE 10 MG TAB PO ONE (19:00)
[2017-03-29 20:07] VITALS: BP 130/63; PULSE 78; RESP 18; TEMP 97.5
== END 2017-03-29 20:05 | disposition home or self-care (01) ==
LOC: E/R 12:26
DX: B20 Human immunodeficiency virus [HIV] disease (principal); R25.2 Cramp and spasm; R19.7 Diarrhea, unspecified; E87.1 Hypo-osmolality and hyponatremia; Z79.82 Long term (current) use of aspirin; Z98.61 Coronary angioplasty status
CPT/HCPCS: 36415; 70450; 80053; 81001; 84300; 85025; 85610; 85730; 87045; 87075; 96374; 96375; 99285; J1170; J1200; J2765; J7030

== ENCOUNTER 2017-04-25 00:28 | Emergency (ER) | END 2017-04-25 04:31 | disposition home or self-care (01) | DX: R53.1 Weakness (principal); R19.7 Diarrhea, unspecified; R25.2 Cramp and spasm; R40.2142 Coma scale, eyes open, spontaneous, at arrival to emergency department; R40.2252 Coma scale, best verbal response, oriented, at arrival to emergency department; R40.2362 Coma scale, best motor response, obeys commands, at arrival to emergency department; Z98.61 Coronary angioplasty status; Z79.82 Long term (current) use of aspirin | CPT/HCPCS: 36415; 80053; 81001; 83605; 83690; 84484; 85025; 93005; 96374; 96375; 99284; J2270; J2405; J7030 ==

== ENCOUNTER 2017-09-10 14:25 | Emergency (ER) | END 2017-09-10 16:30 | disposition home or self-care (01) ==

== ENCOUNTER 2017-09-23 04:29 | Emergency (ER) | END 2017-09-23 12:38 | disposition home or self-care (01) ==

== ENCOUNTER → 2017-11-04 | Emergency (ER) | END | disposition home or self-care (01) ==

== ENCOUNTER → 2017-12-22 | Emergency (ER) | END | disposition left against medical advice (07) ==

== ENCOUNTER 2017-12-25 06:04 | Emergency (ER) | END 2017-12-25 08:00 | disposition home or self-care (01) ==

== ENCOUNTER 2017-12-30 09:53 | Emergency (ER) | END 2017-12-30 12:16 | disposition home or self-care (01) ==

== ENCOUNTER 2018-03-26 00:15 | Emergency (ER) | END 2018-03-26 03:35 | disposition home or self-care (01) ==

== ENCOUNTER 2018-04-29 23:10 | Emergency (ER) | END 2018-04-30 02:01 | disposition left against medical advice (07) ==

== ENCOUNTER 2018-12-13 05:52 | Emergency (ER) | payer MEDICARE, MEDICAID ==
[~2018-12-13] VITALS: Ht 177.8 cm; Wt 90.9 kg
[~2018-12-13 05:52] MED LIST changes: -ABAC1TAB12 PO; -ASPI-664 PO; +ASPI-817 PO; -BENZ200C43 PO; +CIPR500T4 PO; +CRES20 PO; -CYCL-319 PO; +CYCL10TA7 PO; +DICY10CA40 PO; +IBUP-1542 PO; +LISI-471 PO; -LISI20TA11 PO; +LOPE2CAP PO; -METO10TA96 PO; +METR500T PO; +OMEG1CAP2 PO; -PRD1OP5 BOTH EYES; -ROSU20TA PO
[2018-12-13 06:03] VITALS: Ht 177.8 cm; Wt 90.9 kg
[2018-12-13] MEDS ORDERED: ACETAMINOPHEN 500 MG TAB PO STA (06:40)
--- NOTE | 2018-12-13 07:05 | ERD ---
ER Documentation Chief Complaint Chief Complaint [id number],R hip pain,nonprovoked,nontraumatic,legally blind HPI Patient is a 58 years old legally blind male with PMHx of esophageal carcinoma (currently on remission), HIV with last CD4 count range in the 700's (admits to adherence to antivirals) presenting to the clinic for right lower extremity pin x 3 days. Patient reports pain initially started on right lower extremity that has now radiated to right hip. Patient rates his pain 10/10 and describes it as sharp. Patient admits to difficulty ambulating due to pain but denies pain, fever, chill, swelling, or rash. Patient denies taking any OTC medication and reports allergies to Toradol (rash); however, denies allergic reaction to Ibuprofen and Tylenol. ROS All systems reviewed and are negative except as per history of present illness. Medications Home Meds Active Scripts Acetaminophen* (Tylophen*) 500 Mg Capsule, 1 CAP PO Q6H PRN for PAIN AND OR ELEVATED TEMP, #20 CAP Prov:JODI CARO PA-C 12/13/18 Dicyclomine HCl (Dicyclomine HCl) 10 Mg Capsule, 10 MG PO TID PRN for ABDOMINAL CRAMPING, #20 CAP Prov:JOB ROJAS MD 07/15/18 Metronidazole* (Flagyl*) 500 Mg Tablet, 500 MG PO TID for 7 Days, TAB Prov:JOB ROJAS MD 07/15/18 Ciprofloxacin Hcl* (Ciprofloxacin Hcl*) 500 Mg Tablet, 500 MG PO BID for 7 Days, TAB Prov:JOB ROJAS MD 07/15/18 Loperamide Hcl* (Imodium*) 2 Mg Capsule, 2 MG PO .AFTER EA LOOSE BM PRN for DI ARRHEA, #10 TAB Prov:ISABELLA OTERO MD 03/26/18 Ibuprofen* (Motrin*) 600 Mg Tab, 600 MG PO Q6H PRN for PAIN AND OR ELEVATED TEMP, #20 TAB Prov:ISABELLA OTERO MD 03/26/18 Cyclobenzaprine Hcl* (Cyclobenzaprine Hcl*) 10 Mg Tablet, 10 MG PO Q8 PRN for PAIN, #30 TAB Prov:OZIEL EPSTEIN PA-C 09/23/17 Reported Medications Carvedilol* (Carvedilol*) 25 Mg Tablet, 25 MG PO BID, #60 TAB 09/10/17 [place]-3 Acid Ethyl Esters (Lovaza) 1 Gm Capsule, 2 GM PO BID, CAP 09/10/17 Zolpidem Tartrate* (Zolpidem Tartrate*) 10 Mg Tablet, 10 MG PO QHS PRN for INSOMNIA, #30 TAB 09/10/17 Rosuvastatin Calcium* (Crestor*) 20 Mg Tablet, 20 MG PO QHS, #30 TAB 09/10/17 Lisinopril* (Lisinopril*) 20 Mg Tablet, 20 MG PO BID, #30 TAB 09/10/17 Carisoprodol* (Carisoprodol*) 350 Mg Tablet, 350 MG PO Q8 PRN for MUSCLE SPASMS, TAB 09/10/17 Atropine Sulfate* (Atropine Sulfate*) 3.5 Gm Oint, 1 APPLIC BOTH EYES QID, #1 TUB 09/10/17 Aspirin* (Aspirin* EC) 81 Mg Tablet.dr, 81 MG PO DAILY, TAB 09/10/17 Lorazepam* (Lorazepam*) 1 Mg Tablet, 1 MG PO Q8 PRN for ANXIETY, #60 TAB 09/10/17 Allergies Allergies: Coded Allergies: ketorolac (Verified Allergy, Unknown, 07/15/18) cortisone (Verified Adverse Reaction, Unknown, 07/15/18) pt states had reaction when knee injected PMhx/Soc History of Surgery: Yes (Api, 2X cardiac stents) Anesthesia Reaction: No Hx Neurological Disorder: No Hx Respiratory Disorders: No Hx Cardiac Disorders: Yes (Hypertension, 3X [place]) Hx Psychiatric Problems: No Hx Miscellaneous Medical Probl: Yes (hiv) Hx Alcohol Use: No Hx Substance Use: No Hx Tobacco Use: No Physical Exam Vitals Vital Signs Date Temp Pulse Resp B/P (MAP) Pulse Ox O2 O2 Flow FiO2 Time Delivery Rate 12/13/18 89 17 149/74 99 Room Air 08:48 (99) 12/13/18 97.8 73 19 105/79 96 06:03 (88) Physical Exam Const: No acute distress. Patient lying on exam bed. Head: Atraumatic Eyes: Normal Conjunctiva Resp: Clear to auscultation bilaterally Cardio: Regular rate and rhythm, no murmurs Skin: No petechiae or rashes Back: No midline or flank tenderness Ext: No cyanosis, or edema. Neur: Awake and alert Psych: Normal Mood and Affect Right lower extremity exam: Subjective tenderness to palpation without objective finding from right lower extremity to right hip. No swelling, no rash noted. Negative Mackay sign. Neurovascular exam intact (2+ pelvic and pedal pulse), skin intact, Compartment soft. Results 24 hrs Current Medications Medications Dose Sig/Tiffanie Start Time Status Last (Trade) Ordered Route PRN Stop Time Admin Dose Reason Admin 1,000 mg ONCE STAT 12/13/18 DC 12/13/18 Acetaminophen PO 06:40 12/13/18 06:47 (Tylenol 06:41 Tab) Magnesium 50 ml @ 25 ONCE STAT 12/13/18 DC Sulfate mls/hr IVPB 07:27 12/13/18 08:49 Procedures/MDM Patient was seen and evaluated for right lower extremity pain. Right lower extremity venous ultrasound revealed No sonographic evidence for deep venous thrombosis. Low suspicion for sepsis, fracture, compartment syndrome. Patient was given Tylenol for pain. Patient is stable and ready for discharge. F/U with PCP. Patient will be discharged with Tylenol. Chris.I saw and evaluated patient, and performed physical exam, with mid-level provider, and agree with plan of care Departure Diagnosis: Primary Impression: Hip pain Laterality: right Qualified Codes: M25.551 - Pain in right hip Condition: Stable Patient Instructions: Hip Strain Referrals: [facility] Additional Instructions: Patient advised to return to the ED immediately for new or worsening symptoms. Patient advised to follow up with primary care provider in the next 24-48 hours. Patient verbalized understanding and agrees with treatment plan and course of action. If patient has no primary care they may follow up with [facility] [place] [address] [place] [id number] or [facility] [address] [place] [address] or [facility] [address] [place] [address] JODI CARO PA-C Dec 13, 2018 06:52 MARIETTA TALAVERA MD Dec 14, 2018 19:32
[2018-12-13] MEDS ORDERED: MAGNESIUM SULFATE 2 GM/50 ML 50 ML IVPB STA (07:27)
[2018-12-13] MEDS ORDERED: ACET500C5 PO (08:28)
[2018-12-13 08:48] VITALS: BP 149/74; PULSE 89; RESP 17
== END 2018-12-13 08:48 | disposition home or self-care (01) ==
LOC: E/R 05:52
DX: M25.551 Pain in right hip (principal); I12.9 Hypertensive chronic kidney disease with stage 1 through stage 4 chronic kidney disease, or unspecified chronic kidney disease; N18.4 Chronic kidney disease, stage 4 (severe); I25.2 Old myocardial infarction; Z21 Asymptomatic human immunodeficiency virus [HIV] infection status; Z79.82 Long term (current) use of aspirin; Z98.61 Coronary angioplasty status
CPT/HCPCS: 93971

== ENCOUNTER 2018-12-17 18:25 | Inpatient (IN) | payer MEDICARE, MEDICAID ==
[~2018-12-17] VITALS: Ht 177.8 cm; Wt 94.2 kg
[~2018-12-17 18:25] MED LIST changes: +ACET500C5 PO
--- NOTE | 2018-12-17 18:40 | ERD ---
ER Documentation Chief Complaint Chief Complaint DIZZINESS, WEAKNESS, HEADACHE X1 WEEK HPI This is a 58-year-old man complaining of continued dizziness and generalized weakness x2 to 3 days. States he was at [facility] yesterday and he was diagnosed with hyponatremia, but discharged from there and told his levels were improved with hydration. He states he has continued symptoms and suspects he still hyponatremic. Denies chest pain or shortness of breath, no fevers or chills but he has had a constant daily headache. Patient has had similar headaches in the past and denies that this is the worst headache of his life. ROS All systems reviewed and are negative except as per history of present illness. Medications Home Meds Active Scripts Acetaminophen* (Tylophen*) 500 Mg Capsule, 1 CAP PO Q6H PRN for PAIN AND OR ELEVATED TEMP, #20 CAP Prov:JODI CARO PA-C 12/13/18 Dicyclomine HCl (Dicyclomine HCl) 10 Mg Capsule, 10 MG PO TID PRN for ABDOMINAL CRAMPING, #20 CAP Prov:JOB ROJAS MD 07/15/18 Metronidazole* (Flagyl*) 500 Mg Tablet, 500 MG PO TID for 7 Days, TAB Prov:JOB ROJAS MD 07/15/18 Ciprofloxacin Hcl* (Ciprofloxacin Hcl*) 500 Mg Tablet, 500 MG PO BID for 7 Days, TAB Prov:JOB ROJAS MD 07/15/18 Loperamide Hcl* (Imodium*) 2 Mg Capsule, 2 MG PO .AFTER EA LOOSE BM PRN for DIARRHEA, #10 TAB Prov:ISABELLA OTERO MD 03/26/18 Ibuprofen* (Motrin*) 600 Mg Tab, 600 MG PO Q6H PRN for PAIN AND OR ELEVATED TEMP, #20 TAB Prov:ISABELLA OTERO MD 03/26/18 Cyclobenzaprine Hcl* (Cyclobenzaprine Hcl*) 10 Mg Tablet, 10 MG PO Q8 PRN for PAIN, #30 TAB Prov:OZIEL EPSTEIN PA-C 09/23/17 Reported Medications Carvedilol* (Carvedilol*) 25 Mg Tablet, 25 MG PO BID, #60 TAB 09/10/17 [place]-3 Acid Ethyl Esters (Lovaza) 1 Gm Capsule, 2 GM PO BID, CAP 09/10/17 Zolpidem Tartrate* (Zolpidem Tartrate*) 10 Mg Tablet, 10 MG PO QHS PRN for IN SOMNIA, #30 TAB 09/10/17 Rosuvastatin Calcium* (Crestor*) 20 Mg Tablet, 20 MG PO QHS, #30 TAB 09/10/17 Lisinopril* (Lisinopril*) 20 Mg Tablet, 20 MG PO BID, #30 TAB 09/10/17 Carisoprodol* (Carisoprodol*) 350 Mg Tablet, 350 MG PO Q8 PRN for MUSCLE SPASMS, TAB 09/10/17 Atropine Sulfate* (Atropine Sulfate*) 3.5 Gm Oint, 1 APPLIC BOTH EYES QID, #1 TUB 09/10/17 Aspirin* (Aspirin* EC) 81 Mg Tablet.dr, 81 MG PO DAILY, TAB 09/10/17 Lorazepam* (Lorazepam*) 1 Mg Tablet, 1 MG PO Q8 PRN for ANXIETY, #60 TAB 09/10/17 Allergies Allergies: Coded Allergies: ketorolac (Verified Allergy, Unknown, 07/15/18) cortisone (Verified Adverse Reaction, Unknown, 07/15/18) pt states had reaction when knee injected PMhx/Soc esophageal carcinoma, HIV, hypertension, possible SIADH History of Surgery: Yes (Api, 2X cardiac stents) Anesthesia Reaction: No Hx Neurological Disorder: Yes (cva) Hx Respiratory Disorders: No Hx Cardiac Disorders: Yes (Hypertension, 3X [place]) Hx Psychiatric Problems: No Hx Miscellaneous Medical Probl: Yes (hiv, blindness) Hx Alcohol Use: No Hx Substance Use: No Hx Tobacco Use: No Smoking Status: Never smoker Physical Exam Vitals Vital Signs Date Temp Pulse Resp B/P (MAP) Pulse Ox O2 O2 Flow FiO2 Time Delivery Rate 12/17/18 71 16 123/80 98 Room Air 23:04 (94) 12/17/18 68 15 118/75 100 Room Air 20:56 (89) 12/17/18 60 13 116/76 97 Room Air 19:48 (89) 12/17/18 97.5 67 16 114/78 99 18:33 (90) Physical Exam Const: Well-developed will nourished man, appears nauseous and dizzy, afebrile HEENT: Dry mucous membranes, pink conjunctive a, no cervical spine deformity, no goiter Resp: Clear to auscultation bilaterally Cardio: Regular rate and rhythm, no murmurs Abd: Soft, non tender, non distended. No masses, no guarding Skin: No petechiae or rashes, no lacerations or hematomas Ext: No cyanosis, or edema, distal pulses equal bilateral Neur: Awake and alert x3, no focal deficits or facial asymmetry Psych: Normal Mood and Affect Result Diagram: 12/17/18190312/17/181903 Results 24 hrs Laboratory Tests Test 12/17/18 19:04 White Blood Count 5.3 10^3/ul Red Blood Count 4.85 10^6/ul Hemoglobin 15.0 g/dl Hematocrit 41.5 % Mean Corpuscular Volume 85.6 fl Mean Corpuscular Hemoglobin 30.9 pg Mean Corpuscular Hemoglobin Concent 36.1 g/dl Red Cell Distribution Width 11.4 % Platelet Count 171 10^3/UL Mean Platelet Volume 9.7 fl Immature Granulocytes % 0.200 % Neutrophils % 44.4 % Lymphocytes % 40.8 % Monocytes % 13.1 % Eosinophils % 0.9 % Basophils % 0.6 % Nucleated Red Blood Cells % 0.0 /100WBC Immature Granulocytes # 0.010 10^3/ul Neutrophils # 2.4 10^3/ul Lymphocytes # 2.2 10^3/ul Monocytes # 0.7 10^3/ul Eosinophils # 0.1 10^3/ul Basophils # 0.0 10^3/ul Nucleated Red Blood Cells # 0.0 10^3/ul Sodium Level 123 mmol/L Potassium Level 4.5 mmol/L Chloride Level 90 mmol/L Carbon Dioxide Level 21 mmol/L Anion Gap 12 Blood Urea Nitrogen 9 mg/dl Creatinine 0.90 mg/dl Est Glomerular Filtrat Rate mL/min > 60 mL/min Glucose Level 114 mg/dl Calcium Level 9.0 mg/dl Total Bilirubin 0.5 mg/dl Direct Bilirubin 0.00 mg/dl Indirect Bilirubin 0.5 mg/dl Aspartate Amino Transf (AST/SGOT) 28 IU/L Alanine Aminotransferase (ALT/SGPT) 21 IU/L Alkaline Phosphatase 62 IU/L Total Protein 7.8 g/dl Albumin 4.4 g/dl Globulin 3.40 g/dl Albumin/Globulin Ratio 1.29 Lipase 43 U/L Current Medications Medications Dose Sig/Tiffanie Start Time Status Last (Trade) Ordered Route PRN Stop Time Admin Dose Reason Admin Sodium 500 ml @ Q1H STAT 12/17/18 DC 12/17/18 Chloride 500 mls/hr IV 18:46 12/17/18 18:59 19:45 Ondansetron 4 mg ONCE STAT 12/17/18 DC 12/17/18 HCl (Zofran IV 18:46 12/17/18 18:58 Inj) 18:47 Oxycodone/ 1 tab ONCE ONCE 12/17/18 DC 12/17/18 Acetaminophen PO 19:00 12/17/18 18:58 (Percocet 19:01 (5/ 325)) Sodium 1,000 ml @ Q10H IV 12/17/18 12/17/18 Chloride 100 mls/hr 21:37 21:47 IV Flush 3 ml PER 12/17/18 (NS 3 ml) PROTOCOL IV 22:00 Ondansetron 4 mg Q6H PRN 12/17/18 HCl (Zofran IV 22:00 Inj) NAUSEA/VOMITI NG 650 mg Q6H PRN 12/17/18 12/17/18 Acetaminophen PO .PAIN 1-3 22:00 21:47 (Tylenol OR TEMP Tab) Heparin 5,000 unit Q12 SC 12/18/18 Sodium 09:00 (Porcine) (Heparin (5000 Units/1ml)) Albuterol/ 3 ml Q2H RESP 12/17/18 Ipratropium THERAPY PRN 22:00 (Duoneb) HHN SHORTNESS OF BREATH Aspirin 81 mg DAILY PO 12/18/18 (Halfprin) 09:00 350 mg Q8 PRN PO 12/17/18 Carisoprodol MUSCLE SPASMS 22:00 (Soma) Carvedilol 25 mg BID PO 12/18/18 (Coreg) 09:00 Lisinopril 20 mg BID PO 12/18/18 (Zestril) 09:00 20 mg QHS PO 12/18/18 UNV Miscellaneous 21:00 Information Procedures/MDM IV line was established patient was placed on cardiac exercise specialist rhythm strip revealed a sinus rhythm at about 80 bpm with upright P and T waves. Patient was afebrile I administered 500 cc normal saline IV, Zofran 4 mg IV for dizziness and Percocet 1 tablet p.o. for headache EKG performed, read by me: Sinus bradycardia 51 bpm, left axis deviation, right ventricular conduction delay QRS duration 118 ms, no concerning ST elevations or depressions noted CBC was unremarkable, electrolytes revealed hyponatremia 123, liver function test normal. Given the patient's continued dizziness, headache, and hyponatremia he will be admitted to telemetry setting Departure Diagnosis: Primary Impression: Dizziness Additional Impressions: Acute hyponatremia Headache Headache type: tension-type Headache chronicity pattern: acute headache Intractability: intractable Qualified Codes: G44.201 - Tension-type headache, unspecified, intractable Condition: MARIETTA Arana MD Dec 17, 2018 18:40
[2018-12-17] MEDS ORDERED: SOD CHLORIDE 0.9% 500 ML IV STA (18:46)
[2018-12-17] MEDS ORDERED: ONDANSETRON 4 MG INJ IV STA (18:46)
[2018-12-17] MEDS ORDERED: OXYCODONE/ACETAMINOPHEN (5/325) TAB PO ONE (19:00)
[2018-12-17] MEDS: SOD CHLORIDE 0.9% 1,000 ML IV SCH (21:47)
[2018-12-17] MEDS ORDERED: ACETAMINOPHEN 325 MG TAB PO PRN (22:00)
[2018-12-17] MEDS ORDERED: ALBUTEROL/IPRATROPIUM (NEB) 3 ML AMP HHN PRN (22:00)
[2018-12-17] MEDS ORDERED: ONDANSETRON 4 MG INJ IV PRN (22:00)
[2018-12-17] MEDS ORDERED: NACL 0.9% 3 ML SYG IV SCH (22:00)
[2018-12-17] MEDS ORDERED: CARISOPRODOL 350 MG TAB PO PRN (22:00)
[2018-12-18 00:15] VITALS: BP 132/81; PULSE 60; RESP 18
[2018-12-18 00:17] VITALS: Ht 177.8 cm; Wt 94.2 kg
[2018-12-18] MEDS: OXYCODONE/ACETAMINOPHEN (5/325) TAB PO PRN ×6 (01:28→22:13)
[2018-12-18] MEDS: ZOLPIDEM 5 MG TAB PO PRN ×2 (02:44→23:11)
--- NOTE | 2018-12-18 05:54 | HP ---
Date/Time of Note Date/Time of Note DATE: 12/18/18 TIME: 05:50 Assessment/Plan VTE Prophylaxis Pharmacological prophylaxis: heparin Lines/Catheters IV Catheter Type (from Nrsg): Peripheral IV Assessment/Plan Assessment/Plan 1. Hyponatremia: Likely from diarrhea -Check urine electrolytes and osmolality -NS IVF -Nephrology consult as needed 2. Bilateral leg cramping: Secondary to above 3. Diarrhea: Patient had watery diarrhea a week ago for 3 days -Resolved 4. HIV -Per patient, last CD4 count was 700 three months ago -Continue meds 5. CAD s/p PCI with stents x2 -Continue home meds 6. History of esophageal cancer status post chemo and radiation 20 years ago: -No acute issue 7. Blindness: Supportive care Result Diagram: 12/18/18 0444 12/17/18 1904 Results 24hrs Laboratory Tests Test 12/17/18 19:04 12/18/18 04:44 White Blood Count 5.3 4.1 #L Red Blood Count 4.85 5.18 Hemoglobin 15.0 15.8 Hematocrit 41.5 L 43.9 Mean Corpuscular Volume 85.6 84.7 Mean Corpuscular Hemoglobin 30.9 30.5 Mean Corpuscular Hemoglobin Concent 36.1 36.0 Red Cell Distribution Width 11.4 L 11.5 Platelet Count 171 # 143 Mean Platelet Volume 9.7 10.4 Immature Granulocytes % 0.200 0.200 Neutrophils % 44.4 35.8 L Lymphocytes % 40.8 46.1 Monocytes % 13.1 H 16.4 H Eosinophils % 0.9 1.0 Basophils % 0.6 0.5 Nucleated Red Blood Cells % 0.0 0.0 Immature Granulocytes # 0.010 0.010 Neutrophils # 2.4 1.5 L Lymphocytes # 2.2 1.9 Monocytes # 0.7 0.7 Eosinophils # 0.1 0.0 Basophils # 0.0 0.0 Nucleated Red Blood Cells # 0.0 0.0 Sodium Level 123 L Potassium Level 4.5 Chloride Level 90 L Carbon Dioxide Level 21 Anion Gap 12 Blood Urea Nitrogen 9 Creatinine 0.90 Est Glomerular Filtrat Rate mL/min > 60 Glucose Level 114 Calcium Level 9.0 Total Bilirubin 0.5 Direct Bilirubin 0.00 Indirect Bilirubin 0.5 Aspartate Amino Transf (AST/SGOT) 28 Alanine Aminotransferase (ALT/SGPT) 21 Alkaline Phosphatase 62 Total Protein 7.8 Albumin 4.4 Globulin 3.40 H Albumin/Globulin Ratio 1.29 Lipase 43 HPI/ROS Admit Date/Time Admit Date/Time Dec 17, 2018 at 19:49 Hx of Present Illness This is a 58-year-old male with a history of HIV, CAD status post PCI, esophageal cancer status post chemo/radiation 20 years ago, blindness, hyponatremia who presented to ER complaining of bilateral leg cramping, minimal abdominal pain. Symptoms been going on for the past 3 days. Patient was just discharged from [facility] yesterday after he was admitted with similar symptoms. At that time he was treated for hyponatremia thought to be from diarrhea. Patient again reported that he had watery diarrhea for 3 days about a week ago. When he presented to ER, he is found to have sodium of 123. Patient had been admitted here several times in the past and review of his lab shows that most of the time he has been hyponatremic. PMH/Family/Social Past Medical History Medical History: other (See HPI) Medications Current Medications Sodium Chloride 1,000 ml @ 100 mls/hr Q10H IV Last administered on 12/17/18at 21:47; Admin Dose 100 MLS/HR; Start 12/17/18 at 21:37 IV Flush (NS 3 ml) 3 ml PER PROTOCOL IV ; Start 12/17/18 at 22:00 Ondansetron HCl (Zofran Inj) 4 mg Q6H PRN IV NAUSEA/VOMITING; Start 12/17/18 at 22:00 Acetaminophen (Tylenol Tab) 650 mg Q6H PRN PO .PAIN 1-3 OR TEMP Last administered on 12/17/18at 21:47; Admin Dose 650 MG; Start 12/17/18 at 22:00 Heparin Sodium (Porcine) (Heparin (5000 Units/1ml)) 5,000 unit Q12 SC ; Start 12/18/18 at 09:00 Albuterol/ Ipratropium (Duoneb) 3 ml Q2H RESP THERAPY PRN HHN SHORTNESS OF BREATH; Start 12/17/18 at 22:00 Aspirin (Halfprin) 81 mg DAILY PO ; Start 12/18/18 at 09:00 Carisoprodol (Soma) 350 mg Q8 PRN PO MUSCLE SPASMS; Start 12/17/18 at 22:00 Carvedilol (Coreg) 25 mg BID PO ; Start 12/18/18 at 09:00 Lisinopril (Zestril) 20 mg BID PO ; Start 12/18/18 at 09:00 Miscellaneous Information 20 mg QHS PO ; Start 12/18/18 at 21:00; Status UNV Oxycodone/ Acetaminophen (Percocet (5/ 325)) 1 tab Q4H PRN PO MODERATE PAIN LEVEL 4-6 Last administered on 12/18/18at 05:42; Admin Dose 1 TAB; Start 12/18/18 at 01:00 Zolpidem Tartrate (Ambien) 10 mg HS PRN PO INSOMNIA Last administered on 12/18/18at 02:44; Admin Dose 10 MG; Start 12/18/18 at 01:00 Patient Own Medication 1 ea AC BREAKFAST PO ; Start 12/18/18 at 07:20 Coded Allergies: ketorolac (Verified Allergy, Unknown, 07/15/18) cortisone (Verified Adverse Reaction, Unknown, 07/15/18) pt states had reaction when knee injected Past Surgical History Past Surgical Hx: other (See HPI) Family History Significant Family History: no pertinent family hx Social History Alcohol Use: none Smoking Status: Never smoker Drug Use: none Exam/Review of Systems Vital Signs Vitals Vital Signs Date Temp Pulse Resp B/P (MAP) Pulse Ox O2 O2 Flow FiO2 Time Delivery Rate 12/18/18 97.7 60 18 132/81 96 Room Air 00:15 (98) Intake and Output 12/17/18 12/17/18 12/18/18 1515:00 23:00 07:00 IntakeIntake Total 760 ml OutputOutput Total 1150 ml BalanceBalance -390 ml Exam Constitutional: other (No acute distress. Bilateral blindness) Head: normocephalic, atraumatic Eyes: other (Blind in both eyes) Respiratory: clear to auscultation, normal air movement Cardiovascular: regular rate and rhythm, nl pulses Gastrointestinal: soft Extremities: normal pulses JOCELIN CAMARA MD Dec 18, 2018 05:54
[2018-12-18 07:06] VITALS: BP 121/83; PULSE 62; RESP 18
[2018-12-18] MEDS: SOD CHLORIDE 0.9% 1,000 ML IV SCH ×3 (08:26→19:40)
[2018-12-18] MEDS: LISINOPRIL 20 MG TAB PO SCH ×2 (09:00→20:15)
[2018-12-18] MEDS ORDERED: HEPARIN 5,000 UNIT/1 ML VIAL SC SCH (09:00)
[2018-12-18] MEDS ORDERED: morphine 2 MG INJ IV PRN (09:30)
[2018-12-18] MEDS: ASPIRIN (EC) 81 MG TAB PO SCH (09:54)
[2018-12-18] MEDS: TRIUMEQ PO SCH (09:54)
[2018-12-18] MEDS: LORAZEPAM 2 MG INJ IV PRN ×2 (11:34→20:15)
[2018-12-18 15:15] VITALS: BP 118/77; PULSE 73; RESP 18
--- NOTE | 2018-12-18 18:39 | PN ---
Date/Time of Note Date/Time of Note DATE: 12/18/18 TIME: 18:35 Assessment/Plan VTE Prophylaxis Risk score (from Ns)>0 risk: 3 SCD applied (from Ns): Yes SCD contraindicated: low risk/ambulating Pharmacological prophylaxis: NA/contraindicated Pharm contraindication: low risk/ambulating Lines/Catheters IV Catheter Type (from Rust): Peripheral IV Assessment/Plan Hospital Course Assessment/Plan 1. Mod hyponatremia, stable, chronic, hydrate. Suspected loss through diarrhea 2. Subacute diarrhea. No recent antibiotic use. 3. Chronic HIV, adherent to therapy 4. Chronic pain? 5. Chronic anxiety disorder? 6. History of nonadherence 7. Chronic CAD/PCI stent status 8. History of esophageal cancer status post chemo radiation? 9. TURP, carolyn, hernia, cholecystectomy Status? S: Less diarrhea. Anxious agitated. No fever or abd pain. States he is regular with HIV therapy. Recently left [facility] is ago. Has leg pains. O: vss PE No pallor icterus Regular no m/r/g Clear Bs+ nt nd no RRG No edema Result Diagram: 12/18/1844312/18/184 Results 24hrs Laboratory Tests Test 12/17/18 19:04 12/18/18 04:44 12/18/18 06:45 12/18/18 07:03 White Blood Count 5.3 4.1 #L Red Blood Count 4.85 5.18 Hemoglobin 15.0 15.8 Hematocrit 41.5 L 43.9 Mean Corpuscular Volume 85.6 84.7 Mean Corpuscular 30.9 30.5 Hemoglobin Mean Corpuscular 36.1 36.0 Hemoglobin Concent Red Cell Distribution 11.4 L 11.5 Width Platelet Count 171 # 143 Mean Platelet Volume 9.7 10.4 Immature Granulocytes % 0.200 0.200 Neutrophils % 44.4 35.8 L Lymphocytes % 40.8 46.1 Monocytes % 13.1 H 16.4 H Eosinophils % 0.9 1.0 Basophils % 0.6 0.5 Nucleated Red Blood 0.0 0.0 Cells % Immature Granulocytes # 0.010 0.010 Neutrophils # 2.4 1.5 L Lymphocytes # 2.2 1.9 Monocytes # 0.7 0.7 Eosinophils # 0.1 0.0 Basophils # 0.0 0.0 Nucleated Red Blood 0.0 0.0 Cells # Sodium Level 123 L 128 L Potassium Level 4.5 4.8 Chloride Level 90 L 98 Carbon Dioxide Level 21 19 L Anion Gap 12 11 Blood Urea Nitrogen 9 8 Creatinine 0.90 0.83 Est Glomerular Filtrat > 60 > 60 Rate mL/min Glucose Level 114 103 Calcium Level 9.0 8.7 Total Bilirubin 0.5 0.6 Direct Bilirubin 0.00 0.00 Indirect Bilirubin 0.5 0.6 Aspartate Amino 28 32 Transf (AST/SGOT) Alanine 21 28 Aminotransferase (ALT/SG PT) Alkaline Phosphatase 62 58 Total Protein 7.8 7.6 Albumin 4.4 4.1 Globulin 3.40 H 3.50 H Albumin/Globulin Ratio 1.29 1.17 Lipase 43 Magnesium Level 1.9 Urine Osmolality 103 L Urine Random Sodium Urine Random Potassium < 9.7 L Osmolality 260 L Exam/Review of Systems Exam Vitals Vital Signs Date Temp Pulse Resp B/P (MAP) Pulse Ox O2 O2 Flow FiO2 Time Delivery Rate 12/18/18 98.3 73 18 118/77 99 Room Air 15:15 (91) Intake and Output 12/17/18 12/17/18 12/18/18 1515:00 23:00 07:00 IntakeIntake Total 760 ml OutputOutput Total 1150 ml BalanceBalance -390 ml Results Results 24hrs Laboratory Tests Test 12/17/18 19:04 12/18/18 04:44 12/18/18 06:45 12/18/18 07:03 White Blood Count 5.3 4.1 #L Red Blood Count 4.85 5.18 Hemoglobin 15.0 15.8 Hematocrit 41.5 L 43.9 Mean Corpuscular Volume 85.6 84.7 Mean Corpuscular 30.9 30.5 Hemoglobin Mean Corpuscular 36.1 36.0 Hemoglobin Concent Red Cell Distribution 11.4 L 11.5 Width Platelet Count 171 # 143 Mean Platelet Volume 9.7 10.4 Immature Granulocytes % 0.200 0.200 Neutrophils % 44.4 35.8 L Lymphocytes % 40.8 46.1 Monocytes % 13.1 H 16.4 H Eosinophils % 0.9 1.0 Basophils % 0.6 0.5 Nucleated Red Blood 0.0 0.0 Cells % Immature Granulocytes # 0.010 0.010 Neutrophils # 2.4 1.5 L Lymphocytes # 2.2 1.9 Monocytes # 0.7 0.7 Eosinophils # 0.1 0.0 Basophils # 0.0 0.0 Nucleated Red Blood 0.0 0.0 Cells # Sodium Level 123 L 128 L Potassium Level 4.5 4.8 Chloride Level 90 L 98 Carbon Dioxide Level 21 19 L Anion Gap 12 11 Blood Urea Nitrogen 9 8 Creatinine 0.90 0.83 Est Glomerular Filtrat > 60 > 60 Rate mL/min Glucose Level 114 103 Calcium Level 9.0 8.7 Total Bilirubin 0.5 0.6 Direct Bilirubin 0.00 0.00 Indirect Bilirubin 0.5 0.6 Aspartate Amino 28 32 Transf (AST/SGOT) Alanine 21 28 Aminotransferase (ALT/SG PT) Alkaline Phosphatase 62 58 Total Protein 7.8 7.6 Albumin 4.4 4.1 Globulin 3.40 H 3.50 H Albumin/Globulin Ratio 1.29 1.17 Lipase 43 Magnesium Level 1.9 Urine Osmolality 103 L Urine Random Sodium Urine Random Potassium < 9.7 L Osmolality 260 L Medications Medication Current Medications Sodium Chloride 1,000 ml @ 100 mls/hr Q10H IV Last administered on 12/18/18 08:26; Admin Dose 100 MLS/HR; Start 12/17/18 at 21:37 IV Flush (NS 3 ml) 3 ml PER PROTOCOL IV ; Start 12/17/18 at 22:00 Ondansetron HCl (Zofran Inj) 4 mg Q6H PRN IV NAUSEA/VOMITING; Start 12/17/18 at 22:00 Acetaminophen (Tylenol Tab) 650 mg Q6H PRN PO .PAIN 1-3 OR TEMP Last administered on 12/17/18at 21:47; Admin Dose 650 MG; Start 12/17/18 at 22:00 Heparin Sodium (Porcine) (Heparin (5000 Units/1ml)) 5,000 unit Q12 SC Last administered on 12/18/18 08:27; Admin Dose 5,000 UNIT; Start 12/18/18 at 09:00 Albuterol/ Ipratropium (Duoneb) 3 ml Q2H RESP THERAPY PRN HHN SHORTNESS OF BREATH; Start 12/17/18 at 22:00 Aspirin (Halfprin) 81 mg DAILY PO Last administered on 12/18/18at 09:54; Admin Dose 81 MG; Start 12/18/18 at 09:00 Carvedilol (Coreg) 25 mg BID PO ; Start 12/18/18 at 09:00 Lisinopril (Zestril) 20 mg BID PO ; Start 12/18/18 at 09:00 Atorvastatin Calcium (Lipitor) 80 mg DAILY@21 PO ; Start 12/18/18 at 21:00 Oxycodone/ Acetaminophen (Percocet (5/ 325)) 1 tab Q4H PRN PO MODERATE PAIN LEVEL 4-6 Last administered on 12/18/18at 18:13; Admin Dose 1 TAB; Start 12/18/18 at 01:00 Zolpidem Tartrate (Ambien) 10 mg HS PRN PO INSOMNIA Last administered on 12/18/18 02:44; Admin Dose 10 MG; Start 12/18/18 at 01:00 Patient Own Medication 1 ea AC BREAKFAST PO Last administered on 12/18/18at 09:54; Admin Dose 1 EA; Start 12/18/18 at 07:20 Morphine Sulfate (morphine) 2 mg Q8H PRN IV SEVERE PAIN LEVEL 7-10; Start 12/18/18 at 09:30 Lorazepam (Ativan) 1 mg Q8H PRN IV ANXIETY Last administered on 12/18/18at 11:34; Admin Dose 1 MG; Start 12/18/18 at 09:30 YESY CAMARENA MD Dec 18, 2018 18:39
[2018-12-18 19:25] VITALS: BP 100/65; PULSE 68; RESP 20
[2018-12-18] MEDS: ATORVASTATIN 80 MG TAB PO SCH (20:10)
[2018-12-18] MEDS: LOPERAMIDE 2 MG CAP PO SCH ×2 (20:15→21:00)
[2018-12-19 02:30] VITALS: BP 108/71; PULSE 62; RESP 20
[2018-12-19] MEDS: SOD CHLORIDE 0.9% 1,000 ML IV SCH ×4 (03:37→15:48)
[2018-12-19] MEDS: OXYCODONE/ACETAMINOPHEN (5/325) TAB PO PRN ×6 (03:53→23:54)
[2018-12-19 07:47] VITALS: BP 116/79; PULSE 59; RESP 18
[2018-12-19] MEDS: TRIUMEQ PO SCH (07:53)
[2018-12-19] MEDS: ASPIRIN (EC) 81 MG TAB PO SCH (07:53)
[2018-12-19] MEDS: LISINOPRIL 20 MG TAB PO SCH (07:54)
[2018-12-19] MEDS: LOPERAMIDE 2 MG CAP PO SCH ×2 (07:54→19:32)
[2018-12-19] MEDS: LORAZEPAM 2 MG INJ IV PRN ×2 (09:46→17:41)
[2018-12-19 14:36] VITALS: BP 130/77; PULSE 89; RESP 18
[2018-12-19] MEDS ORDERED: DOCUSATE SODIUM 100 MG CAP PO PRN (17:00)
[2018-12-19] MEDS: ATORVASTATIN 80 MG TAB PO SCH (19:54)
[2018-12-19 19:59] VITALS: BP 118/73; PULSE 68; RESP 20
[2018-12-19] MEDS: ZOLPIDEM 5 MG TAB PO PRN (21:02)
[2018-12-20 02:13] VITALS: BP 107/64; PULSE 56; RESP 18
[2018-12-20] MEDS: LORAZEPAM 2 MG INJ IV PRN (02:27)
[2018-12-20] MEDS: OXYCODONE/ACETAMINOPHEN (5/325) TAB PO PRN ×5 (04:04→20:32)
[2018-12-20 07:56] VITALS: BP 121/76; PULSE 63; RESP 19
[2018-12-20] MEDS: LOPERAMIDE 2 MG CAP PO SCH ×2 (08:09→21:00)
[2018-12-20] MEDS: ASPIRIN (EC) 81 MG TAB PO SCH (08:14)
[2018-12-20] MEDS: TRIUMEQ PO SCH (08:15)
[2018-12-20] MEDS: LISINOPRIL 20 MG TAB PO SCH (08:19)
--- NOTE | 2018-12-20 14:08 | PN ---
Date/Time of Note Date/Time of Note DATE: 12/20/18 TIME: 14:01 Assessment/Plan VTE Prophylaxis Risk score (from Ns)>0 risk: 1 SCD applied (from Ns): Yes Pharmacological prophylaxis: LMWH Lines/Catheters IV Catheter Type (from Nrs): Saline Lock Urinary Cath still in place: No Assessment/Plan Assessment/Plan 1. Mod hyponatremia, due to GI loss, improving, follow up with Na level 2. Diarrhea, resolved 3. Chronic HIV, adherent to therapy 4. Chronic anxiety disorder, xanax prn 5. Chronic CAD/PCI stent status, stable, on aspirin, lipitor, coreg 6. History of esophageal cancer status post chemo radiation? 7. TURP, carolyn, hernia, cholecystectomy Status? 8. Blindness 9. DVT prophylaxis: lovenox 10. Plan to discharge home tomorrow Result Diagram: 12/20/1844412/20/18444 Results 24hrs Laboratory Tests Test 12/20/18 04:45 White Blood Count 4.7 L Red Blood Count 5.09 Hemoglobin 15.5 Hematocrit 44.2 Mean Corpuscular Volume 86.8 Mean Corpuscular Hemoglobin 30.5 Mean Corpuscular Hemoglobin Concent 35.1 Red Cell Distribution Width 11.9 Platelet Count 171 Mean Platelet Volume 9.4 Immature Granulocytes % 0.200 Neutrophils % 39.0 Lymphocytes % 47.1 Monocytes % 12.3 H Eosinophils % 0.6 Basophils % 0.8 Nucleated Red Blood Cells % 0.0 Immature Granulocytes # 0.010 Neutrophils # 1.8 Lymphocytes # 2.2 Monocytes # 0.6 Eosinophils # 0.0 Basophils # 0.0 Nucleated Red Blood Cells # 0.0 Prothrombin Time 12.7 Prothrombin Time Ratio 1.0 INR International Normalized Ratio 0.94 Sodium Level 133 L Potassium Level 4.3 Chloride Level 101 Carbon Dioxide Level 21 Anion Gap 11 Blood Urea Nitrogen 8 Creatinine 0.96 Est Glomerular Filtrat Rate mL/min > 60 Glucose Level 110 Calcium Level 9.3 Creatine Kinase 146 Subjective 24 Hr Interval Summary Free Text/Dictation anxious Exam/Review of Systems Exam Vitals Vital Signs Date Temp Pulse Resp B/P (MAP) Pulse Ox O2 O2 Flow FiO2 Time Delivery Rate 12/20/18 98.0 63 19 121/76 98 Room Air 07:56 (91) Intake and Output 12/19/18 12/19/18 12/20/18 1515:00 23:00 07:00 IntakeIntake Total 1200 ml 1600 ml OutputOutput Total 2900 ml BalanceBalance 1200 ml -1300 ml Constitutional: alert, oriented, well developed Psych: anxiety Head: normocephalic, atraumatic Eyes: nl conjunctiva, EOMI, other (blind) ENMT: nl external ears & nose, nl lips & teeth, nl nasal mucosa & septum Neck: supple Respiratory: clear to auscultation, normal air movement; No congested cough, No crackles/rales, No diminished breath sounds, No intercostal retraction, No labored breathing, No respirations, No tactile fremitus, No wheezing, No other Cardiovascular: regular rate and rhythm, nl pulses; No bruits, No diastolic murmur, No edema, No gallop, No irregular rhythm, No jugular venous distention (JVD), No murmurs/extra sounds, No rub, No systolic murmur, No S3, No S4, No other Gastrointestinal: soft, nl liver, spleen, non-tender Musculoskeletal: nl extremities to inspection Extremities: normal pulses; No calf tenderness, No cyanosis, No clubbing, No edema, No pitting pedal edema, No palpable cord, No tenderness, No other 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, nl mental status, nl speech, nl strength Skin: nl turgor Results Results 24hrs Laboratory Tests Test 12/20/18 04:45 White Blood Count 4.7 L Red Blood Count 5.09 Hemoglobin 15.5 Hematocrit 44.2 Mean Corpuscular Volume 86.8 Mean Corpuscular Hemoglobin 30.5 Mean Corpuscular Hemoglobin Concent 35.1 Red Cell Distribution Width 11.9 Platelet Count 171 Mean Platelet Volume 9.4 Immature Granulocytes % 0.200 Neutrophils % 39.0 Lymphocytes % 47.1 Monocytes % 12.3 H Eosinophils % 0.6 Basophils % 0.8 Nucleated Red Blood Cells % 0.0 Immature Granulocytes # 0.010 Neutrophils # 1.8 Lymphocytes # 2.2 Monocytes # 0.6 Eosinophils # 0.0 Basophils # 0.0 Nucleated Red Blood Cells # 0.0 Prothrombin Time 12.7 Prothrombin Time Ratio 1.0 INR International Normalized Ratio 0.94 Sodium Level 133 L Potassium Level 4.3 Chloride Level 101 Carbon Dioxide Level 21 Anion Gap 11 Blood Urea Nitrogen 8 Creatinine 0.96 Est Glomerular Filtrat Rate mL/min > 60 Glucose Level 110 Calcium Level 9.3 Creatine Kinase 146 Medications Medication Current Medications IV Flush (NS 3 ml) 3 ml PER PROTOCOL IV ; Start 12/17/18 at 22:00 Ondansetron HCl (Zofran Inj) 4 mg Q6H PRN IV NAUSEA/VOMITING; Start 12/17/18 at 22:00 Acetaminophen (Tylenol Tab) 650 mg Q6H PRN PO .PAIN 1-3 OR TEMP Last administered on 12/17/18 21:47; Admin Dose 650 MG; Start 12/17/18 at 22:00 Albuterol/ Ipratropium (Duoneb) 3 ml Q2H RESP THERAPY PRN HHN SHORTNESS OF B REATH; Start 12/17/18 at 22:00 Aspirin (Halfprin) 81 mg DAILY PO Last administered on 12/20/18 08:14; Admin Dose 81 MG; Start 12/18/18 at 09:00 Carvedilol (Coreg) 25 mg BID PO Last administered on 12/20/18 08:15; Admin Dose 25 MG; Start 12/18/18 at 09:00 Atorvastatin Calcium (Lipitor) 80 mg DAILY@21 PO Last administered on 12/19/18 19:54; Admin Dose 80 MG; Start 12/18/18 at 21:00 Oxycodone/ Acetaminophen (Percocet (5/ 325)) 1 tab Q4H PRN PO MODERATE PAIN LEVEL 4-6 Last administered on 12/20/18 12:23; Admin Dose 1 TAB; Start 12/18/18 at 01:00 Zolpidem Tartrate (Ambien) 10 mg HS PRN PO INSOMNIA Last administered on 12/19/18 21:02; Admin Dose 10 MG; Start 12/18/18 at 01:00 Patient Own Medication 1 ea AC BREAKFAST PO Last administered on 12/20/18 08:15; Admin Dose 1 EA; Start 12/18/18 at 07:20 Morphine Sulfate (morphine) 2 mg Q8H PRN IV SEVERE PAIN LEVEL 7-10; Start 12/18/18 at 09:30 Lorazepam (Ativan) 1 mg Q8H PRN IV ANXIETY Last administered on 12/20/18 02:27; Admin Dose 1 MG; Start 12/18/18 at 09:30 Loperamide HCl (Imodium Cap) 2 mg BID PO ; Start 12/18/18 at 21:00 Lisinopril (Zestril) 20 mg DAILY PO Last administered on 12/20/18at 08:19; Admin Dose 20 MG; Start 12/20/18 at 09:00 Docusate Sodium (Colace) 100 mg BID PRN PO CONSTIPATION; Start 12/19/18 at 17:00 TAM DUMONT MD Dec 20, 2018 14:08
[2018-12-20] MEDS: ALPRAZOLAM 0.25 MG TAB PO PRN ×2 (14:29→20:32)
[2018-12-20 14:40] VITALS: BP 127/82; PULSE 79; RESP 19
[2018-12-20 20:13] VITALS: BP 129/82; PULSE 85; RESP 18
[2018-12-20] MEDS: ATORVASTATIN 80 MG TAB PO SCH (20:34)
[2018-12-20] MEDS: ZOLPIDEM 5 MG TAB PO PRN (21:54)
[2018-12-21] MEDS: OXYCODONE/ACETAMINOPHEN (5/325) TAB PO PRN ×3 (00:28→08:25)
[2018-12-21 01:32] VITALS: BP 105/66; PULSE 68; RESP 18
[2018-12-21] MEDS: ALPRAZOLAM 0.25 MG TAB PO PRN ×2 (04:20→08:25)
[2018-12-21 08:23] VITALS: BP 109/56; PULSE 63; RESP 18
[2018-12-21] MEDS: LOPERAMIDE 2 MG CAP PO SCH (09:00)
[2018-12-21] MEDS ORDERED: ENOXAPARIN 40 MG/0.4 ML SYG SC SCH (09:00)
[2018-12-21] MEDS: LISINOPRIL 20 MG TAB PO SCH (09:00)
[2018-12-21] MEDS: ASPIRIN (EC) 81 MG TAB PO SCH (09:18)
[2018-12-21] MEDS: TRIUMEQ PO SCH (09:19)
--- NOTE | 2018-12-21 12:04 | DS ---
Date/Time of Note Date/Time of Note DATE: 12/21/18 TIME: 12:01 Discharge Summary Admission/Discharge Info Admit Date/Time Dec 17, 2018 at 19:49 Discharge Date/Time Discharge Diagnosis 1. Mod hyponatremia, due to GI loss, improved 2. Diarrhea, resolved 3. Chronic HIV, adherent to therapy 4. Chronic anxiety disorder, PCP follow up 5. Chronic CAD/PCI stent status, stable, on aspirin, lipitor, coreg 6. History of esophageal cancer status post chemo radiation 7. TURP, carolyn, hernia, cholecystectomy Status 8. Blindness Patient Condition: Stable Hospital Course This is a 58-year-old male with a history of HIV, CAD status post PCI, esophageal cancer status post chemo/radiation 20 years ago, blindness, hyponatremia who presented to ER complaining of bilateral leg cramping, minimal abdominal pain. Symptoms been going on for the past 3 days. Patient was just discharged from [facility] yesterday after he was admitted with similar symptoms. At that time he was treated for hyponatremia thought to be from diarrhea. Patient again reported that he had watery diarrhea for 3 days about a week ago. When he presented to ER, he is found to have sodium of 123. Patient had been admitted here several times in the past and review of his lab shows that most of the time he has been hyponatremic. No further diarrhea. Patient is treated with IVF for hyponatremia, Na improved to 134 this morning. Patient is discharged with stable condition. Home Meds Active Scripts Acetaminophen* (Tylophen*) 500 Mg Capsule, 1 CAP PO Q6H PRN for PAIN AND OR ELEVATED TEMP, #20 CAP Prov:JODI CARO PA-C 12/13/18 Cyclobenzaprine Hcl* (Cyclobenzaprine Hcl*) 10 Mg Tablet, 10 MG PO Q8 PRN for PAIN, #30 TAB Prov:OZIEL EPSTEIN PA-C 09/23/17 Reported Medications Carvedilol* (Carvedilol*) 25 Mg Tablet, 25 MG PO BID, #60 TAB 09/10/17 Rosuvastatin Calcium* (Crestor*) 20 Mg Tablet, 20 MG PO QHS, #30 TAB 09/10/17 Lisinopril* (Lisinopril*) 20 Mg Tablet, 20 MG PO BID, #30 TAB 3/29/18 Carisoprodol* (Carisoprodol*) 350 Mg Tablet, 350 MG PO Q8 PRN for MUSCLE SPASMS, TAB 09/10/17 Atropine Sulfate* (Atropine Sulfate*) 3.5 Gm Oint, 1 APPLIC BOTH EYES QID, #1 TUB 09/10/17 Aspirin* (Aspirin* EC) 81 Mg Tablet.dr, 81 MG PO DAILY, TAB 09/10/17 Discontinued Reported Medications Novinger-3 Acid Ethyl Esters (Lovaza) 1 Gm Capsule, 2 GM PO BID, CAP 09/10/17 Zolpidem Tartrate* (Zolpidem Tartrate*) 10 Mg Tablet, 10 MG PO QHS PRN for INSOMNIA, #30 TAB 09/10/17 Lorazepam* (Lorazepam*) 1 Mg Tablet, 1 MG PO Q8 PRN for ANXIETY, #60 TAB 09/10/17 Discontinued Scripts Dicyclomine HCl (Dicyclomine HCl) 10 Mg Capsule, 10 MG PO TID PRN for ABDOMINAL CRAMPING, #20 CAP Prov:JOB ROJAS MD 07/15/18 Metronidazole* (Flagyl*) 500 Mg Tablet, 500 MG PO TID for 7 Days, TAB Prov:JOB ROJAS MD 07/15/18 Ciprofloxacin Hcl* (Ciprofloxacin Hcl*) 500 Mg Tablet, 500 MG PO BID for 7 Days, TAB Prov:JOB ROJAS MD 07/15/18 Loperamide Hcl* (Imodium*) 2 Mg Capsule, 2 MG PO .AFTER EA LOOSE BM PRN for DIARRHEA, #10 TAB Prov:ISABELLA OTERO MD 03/26/18 Ibuprofen* (Motrin*) 600 Mg Tab, 600 MG PO Q6H PRN for PAIN AND OR ELEVATED TEMP, #20 TAB Prov:ISABELLA OTERO MD 03/26/18 Follow-up Plan PCP in one week Primary Care Provider Pending Labs Laboratory Tests Test 12/21/18 04:33 12/21/18 09:48 Sodium Level 134 mmol/L (135-144) Potassium Level 4.5 mmol/L (3.5-5.1) Chloride Level 98 mmol/L (97-110) Carbon Dioxide Level 22 mmol/L (21-31) Anion Gap 14 (5-13) Blood Urea Nitrogen 10 mg/dl (7-20) Creatinine 1.08 mg/dl (0.61-1.24) Est Glomerular Filtrat > 60 mL/min (>60) Rate mL/min Glucose Level 111 mg/dl (70-220) Calcium Level 9.8 mg/dl (8.4-10.2) Lab Scanned Report REFERENCE LAB [id number] TAM DUMONT MD Dec 21, 2018 12:04
== END 2018-12-21 12:15 | disposition home or self-care (01) | DRG 641 ==
LOC: E/R 18:25 → MS1 19:49 → CANRESERV 22:27 → MS1 23:34
PROVIDERS: ADMIT Internal Medicine; ATTEND Internal Medicine
DX: E87.1 Hypo-osmolality and hyponatremia (principal); R19.7 Diarrhea, unspecified; I25.10 Atherosclerotic heart disease of native coronary artery without angina pectoris; Z95.5 Presence of coronary angioplasty implant and graft; Z85.01 Personal history of malignant neoplasm of esophagus; Z92.21 Personal history of antineoplastic chemotherapy; H54.7 Unspecified visual loss; Z92.3 Personal history of irradiation; F41.9 Anxiety disorder, unspecified
CPT/HCPCS: 36415; 71045; 80048; 80053; 82436; 82550; 83690; 83735; 83930; 83935; 84133; 84300; 84443; 85025; 85610; 86360; 87536; 93005; 96374; J1644; J1650; J2060; J2405; J7030; J7040

== ENCOUNTER 2019-03-08 06:13 | Emergency (ER) | payer MEDICARE, MEDICAID ==
[~2019-03-08] VITALS: Ht 177.8 cm; Wt 93.0 kg
[~2019-03-08 06:13] MED LIST changes: +ACET-141 PO; +ACET325T33 PO; -CIPR500T4 PO; -DICY10CA40 PO; -IBUP-1542 PO; -LOPE2CAP PO; -METR500T PO; -OMEG1CAP2 PO; +ONDA4TAB14 PO; -ZOLP10TA5 PO
[2019-03-08 06:16] VITALS: Ht 177.8 cm; Wt 93.0 kg
[2019-03-08] MEDS ORDERED: SOD CHLORIDE 0.9% 1,000 ML IV STA (08:53)
[2019-03-08] MEDS ORDERED: morphine 4 MG/ML VIAL IV STA (08:53)
[2019-03-08] MEDS ORDERED: ONDANSETRON 4 MG INJ IV STA (08:53)
[2019-03-08 11:08] VITALS: BP 111/79; PULSE 67; RESP 18
== END 2019-03-08 11:10 | disposition home or self-care (01) ==
LOC: FTE 06:13 → E/R 11:10
DX: R10.84 Generalized abdominal pain (principal); I10 Essential (primary) hypertension; I25.2 Old myocardial infarction; Z21 Asymptomatic human immunodeficiency virus [HIV] infection status; Z79.82 Long term (current) use of aspirin; Z85.01 Personal history of malignant neoplasm of esophagus; Z98.61 Coronary angioplasty status
CPT/HCPCS: 36415; 74176; 80053; 81003; 83690; 85025; 96374; 96375; 99285; J2270; J2405; J7030